=== PATIENT | female | born 1965 | race Caucasian/White ===

== ENCOUNTER 2020-08-17 10:11 | Day surgery (SDC) | payer OTHER, SELFPAY ==
[2020-08-17 10:46] VITALS: BMI 26.0
--- NOTE | 2020-08-17 11:03 | ANES.PREANE2 ---
Pre-Anesthetic Assessment Pre-Anesthetic Assessment: Height/Weight: Height 1.55 m Weight 62.596 kg Proposed Procedure: Operation Date: 08/24/20 09:50 Proposed Procedures p Hysteroscopy w/ Myosure w/ poss Polypectomy 38671 N95.0(Not Applicable) - Carlos Baca MD s Dilation And Curettage (D&C) w/ Myosure 35257(Not Applicable) - Carlos Baca MD Social: Social History: Tobacco (1994 quit) and No alcohol Exam: Pre-Anes Outpt Exam: alert, oriented x 3, clear to auscultation bilaterally and regular rate & rhythm Airway: Submandibular: WNL Cervical ROM: WNL MP: 1 Dentition: Partials (upper and lower) Additional comments: teeth ok History/ROS: No significant history except as noted Pulmonary: Pulmonary: None reported CV/HEM: CV/HEM: Arrythmia (PSVT controlled ) : : None reported Hepatic: Hepatic: None reported GI: GI: None reported Metabolic: Metabolic: Hyperlipidemia Musc/skel: Musc/skel: None reported Neuropsych: Neuropsych: None reported Anesthetic Plan: ASA status: 2 Anesthesia: Anesthesia Evaluation, General and MAC Risk of > 500 ml blood loss (7ml/kg in children): No PFSH Anesthesia PFSH: Medical History (Updated 08/16/20 @ 19:22 by Carlos Baca MD) Atypical chest pain Dyslipidemia Spider varicose vein Ventricular arrhythmia Surgical History (Updated 08/16/20 @ 19:22 by Carlos Baca MD) History of dental surgery (~2019) Family History (Updated 08/16/20 @ 19:23 by Carlos Baca MD) Mother Stroke Hypertension Grandfather Diabetes Maternal Father No problems noted. Social History (Updated 08/16/20 @ 19:26 by Carlos Baca MD) Smoking and tobacco status: former smoker Quit status (tobacco): has quit using tobacco Year quit tobacco: ~1996 Former quit date comment: Most smoked 1 PPD. Started age 17. Smoked for 15 years. Alcohol intake: current Alcohol intake frequency: holidays/special occasions only Data Anesthesia Cardiac Studies: No Data to Display
[2020-08-24] VITALS (7 sets, daily range): BP systolic 97–130; BP diastolic 57–75; PULSE 50–61; RESP 10–19; TEMP 36.2–36.8; O2SAT 96–100
[2020-08-24] MEDS: sodium chloride 0.9% 1,000 ML 30 ML IV (09:17)
[2020-08-24] MEDS: ketorolac 30 mg/mL INJ IVP (09:27)
--- NOTE | 2020-08-24 09:29 | P.ANESUD_ITS ---
Pre-Anesthetic Update Pre-Anesthetic Assessment: Date of Surgery/Procedure: 08/24/20 Preop Kala gnosis: Postmenopausal bleeding Proposed Procedure: Operation Date: 08/24/20 09:50 Proposed Procedures p Hysteroscopy w/ Myosure w/ poss Polypectomy 33996 N95.0(Not Applicable) - Cralos Baca MD s Dilation And Curettage (D&C) w/ Myosure 69711(Not Applicable) - Carlos Baca MD Any changes to Pre-Anesthetic Assessment?: No Last Intake: Intake Last Liquid Date 08/12/20 Last Liquid Time 19:00 Last Solid Date 08/23/20 Last Solid Time 19:00 Vitals: Temperature 98.2 F 08/24/20 09:17 Pulse Rate 59 L 08/24/20 09:17 Respiratory Rate 18 08/24/20 09:17 Blood Pressure 130/73 08/24/20 09:17 Blood Pressure Alisha n 92 08/24/20 09:17 Pulse Oximetry 97 08/24/20 09:17 Oxygen Delivery Me thod 08/24/20 09:17 Exam: Pre-Anes Outpt Exam: alert, oriented x 3, clear to auscultation bilaterally and regular rate & rhythm Cardiac Studies: No Data to Display
--- NOTE | 2020-08-24 09:31 | P.HPUD_ITS ---
Surgery/Procedure H&P Update DATE OF PROCEDURE: August 24, 2020 DATE H&P PERFORMED: 08/12/20 H&P UPDATE INFORMATION: I have reviewed H&P completed within last 30 days, I have examined patient prior to procedure, No changes to prior documentation and H&P is in [facility] EMR on date indicated PREOP DIAGNOSIS: Postmenopausal bleeding PLANNED PROCEDURE: Operation Date: 08/24/20 09:50 Proposed Procedures p Hysteroscopy w/ Myosure w/ poss Polypectomy 95451 N95.0(Not Applicable) - Carlos Baca MD s Dilation And Curettage (D&C) w/ Myosure 43465(Not Applicable) - Carlos Baca MD
--- NOTE | 2020-08-24 09:31 | W.PM.OPSUD ---
Surgery/Procedure H&P Update DATE OF PROCEDURE: August 24, 2020 DATE H&P PERFORMED: 08/12/20 H&P UPDATE INFORMATION: I have reviewed H&P completed within last 30 days, I have examined patient prior to procedure, No changes to prior documentation and [place] [facility] [place] on date indicated PREOP DIAGNOSIS: Postmenopausal bleeding PLANNED PROCEDURE: Operation Date: 08/24/20 09:50 Proposed Procedures p Hysteroscopy w/ Myosure w/ poss Polypectomy 37649 N95.0(Not Applicable) - Carlos Baca MD s Dilation And Curettage (D&C) w/ Myosure 03616(Not Applicable) - Carlos Baca MD
[2020-08-24] MEDS: midazolam 1 mg/mL INJ 2 mL 2 MG IVP (09:44)
--- NOTE | 2020-08-24 10:28 | PM.OP ---
Operative Report Date of procedure: August 24, 2020 Pre-op Diagnosis: Postmenopausal bleeding Post-op Findings: Postmenopausal bleeding, endometrial polyp and fibroid Procedure Done: Hysteroscopy with polypectomy and myomectomy with MyoSure, Paracervical block with 2% lidocaine with epinephrine Specimens removed/disposition: Endometrial polyp and fibroid with endometrial lining Surgeon: Carlos Baca Cyber [employer] Systems Specialist: None Anesthesia: General and Other (Paracervical block with 2% lidocaine with epinephrine) Estimated blood loss (mL): 2 IV fluids (mL): 700 Complications: None Findings: First to second-degree uterine prolapse. Fundal fibroid with greater than 90% of the fibroid within the endometrial cavity. Off of the end of the fibroid was a polyp. Brief History: Patient is a 55-year-old female 2, para 2 with an LMP in 2011 (postmenopausal). She presented to the office on 08/12/2020 with complaint of postmenopausal bleeding. She reported that in June she had approximately 2 weeks of bleeding that was heavy enough to need to wear a pad. She denied bleeding since that time. As result of the bleeding, she had an ultrasound performed which showed a mass within the endometrial cavity. On review of the ultrasound, it was suspicious for either a fibroid or polyp with it all appearing to be within the endometrial cavity. Recommended at the time proceeding to a hysteroscopy with removal of the polyp if it was a polyp. Questions were answered and she wishes to go ahead and proceed with this. Procedure: The patient was taken to the operating room where general anesthesia was obtained. She was prepped and draped in the usual sterile fashion in the dorsal supine position with legs in Bong style stirrups. Sequential compression boots had been placed prior to starting the case. Patient had voided just before coming to the operating room. Exam under anesthesia was performed and the patient was noted to have first to second-degree uterine prolapse. A weighted speculum was placed in the vagina and the cervix was grasped with a single-tooth tenaculum. A paracervical block was performed with a total of 12 mL of 2% lidocaine with epinephrine used. The cervix was serially dilated until a operative hysteroscope could be passed. Crystalloid solution was used as a distention media. The endometrial cavity was inspected. In the right fundal portion of the uterus was a solid mass consistent with fibroid with almost the entire mass being within the endometrial cavity. Off of the end of the mass was a polyp. No other abnormalities were noted within the endometrial cavity. Both tubal ostia were identified. Using the MyoSure device, the polyp and fibroid was removed. The lining of the uterus was also sampled using the device. There was minimal bleeding from the endometrial cavity at completion. The tenaculum was removed and there was minimal bleeding from the tenaculum site. Patient tolerated the procedure well. Sponge and needle counts were correct. There was a 280 mL fluid deficit at completion of the case from the distention media used. DRAINS: None POSTOPERATIVE STATUS: The patient was transferred to the recovery room in satisfactory condition DISPOSITION: Discharge to home when criteria was met. FOLLOWUP APPOINTMENT: Followup appointment had been scheduled on 09/09/2020 in my office. MEDICATIONS: Tramadol 50 mg, 1 to 2 tablets every 6 hours as needed for pain, #10, 0 refills May use [id number] ibuprofen as needed for pain. May resume normal home medications.
--- NOTE | 2020-08-24 10:42 | SUR.PHASEI ---
1042- ORAL AIRWAY OUT, SIMPLE MASK AT 6LPM SAT 100%
--- NOTE | 2020-08-24 11:06 | ANE.PACU2 ---
Inpatient post-anesthesia follow up: Airway intact: Yes Vital signs: Temperature 97.1 F Pulse Rate 61 Respiratory Rate 18 Blood Pressure 106/75 Pulse Oximetry 99 Oxygen Delivery Me thod Room Air Oxygen Flow Rate 6 Fraction of Inspir ed Oxygen Hydration adequate: Yes Nausea and vomiting: No Pain level: 2 Mental status: Baseline
== END 2020-08-24 11:35 | disposition home or self-care (01) ==
PROVIDERS: PCP Nurse Practitioner Family; Visit Provider Obstetrics & Gynecology
PROC: 0UDB8ZZ Extraction of Endometrium, Via Natural or Artificial Opening Endoscopic (ICD-10-PCS; CPT 58558; principal; 2020-08-24 09:50)
PROC: (CPT 58120; 2020-08-24 09:50)
DX: N95.0 Postmenopausal bleeding (principal); N84.0 Polyp of corpus uteri; D25.9 Leiomyoma of uterus, unspecified; Z87.891 Personal history of nicotine dependence; E78.5 Hyperlipidemia, unspecified
CPT/HCPCS: 58558; 12345; 88305; 96374; 96375; J1100; J1885; J2250; J2405; J2550; J2704; J2710; J3010; J3490; J7030

== ENCOUNTER → 2020-08-18 07:42 | Outpatient (BNVA) | payer OTHER, SELFPAY | PROVIDERS: PCP Nurse Practitioner Family; Visit Provider Obstetrics & Gynecology | DX: Z20.828 Contact with and (suspected) exposure to other viral communicable diseases (principal); N95.0 Postmenopausal bleeding | CPT/HCPCS: 87635 ==

== ENCOUNTER → 2021-05-30 10:44 | Outpatient (BNVA) | payer OTHER, SELFPAY | PROVIDERS: PCP Nurse Practitioner Family; Visit Provider Internal Medicine Cardiovascular Disease | DX: E78.5 Hyperlipidemia, unspecified (principal) | CPT/HCPCS: 80061 ==

== ENCOUNTER → 2021-11-22 15:34 | Outpatient (BNVA) | payer BC, SELFPAY | PROVIDERS: PCP Nurse Practitioner Family; Visit Provider Internal Medicine Cardiovascular Disease | DX: I49.9 Cardiac arrhythmia, unspecified (principal); R07.89 Other chest pain; R00.1 Bradycardia, unspecified | CPT/HCPCS: 93270 ==

== ENCOUNTER 2021-12-04 13:34 | Emergency (ER) | payer BC, MEDICAID, SELFPAY ==
[2021-12-04 13:39] VITALS: BP 160/82; PULSE 73; RESP 16; TEMP 37.1; O2SAT 99; BMI 26.0
--- NOTE | 2021-12-04 13:51 | ECG_ITS ---
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 Measurements Intervals [place] Rate: 65 P: 47 FL: 157 QRS: 88 QRSD: 96 T: 63 QT: 399 QTc: 416 Interpretive Statements SINUS RHYTHM INCOMPLETE RIGHT BUNDLE BRANCH BLOCK [90+ ms QRS DURATION, TERMINAL R IN V1/V2, 40+ ms S IN I/aVL/V4/V5/V6] No previous ECG available for comparison Electronically Signed On 12-04-2021 22:01:11 CDT by Radha Hawkins M.D. [id number]
--- NOTE | 2021-12-04 13:51 | XRR_ITS ---
PROCEDURE INFORMATION: Exam: XR Chest Exam date and time: 12/04/2021 1:58 PM Age: 56 years old Clinical indication: Sternal or substernal pain. Patient complains of intermittent chest pain this morning. Event monitor in place. TECHNIQUE: Imaging protocol: XR of the chest. Views: 1 view. COMPARISON: ES surgery / GI images 08/24/2020 10:01 AM FINDINGS: Tubes, catheters and devices: A loop recorder overlies the chest. Lungs: No pulmonary consolidation. Pleural spaces: No pleural effusion. No pneumothorax. Heart/Mediastinum: The heart appears enlarged. No gross evidence of pneumomediastinum. Bones/joints: No gross fracture. XR/XR chest 1V portable [id number] IMPRESSION: The heart appears enlarged.
--- NOTE | 2021-12-04 13:52 | W.ED.CHESTPA ---
HPI - Chest Pain General: Chief Complaint: Chest Pain Stated Complaint: Chest Pain, upper back pain Time Seen by Provider: 12/04/21 13:44 History of Present Illness: 56-year-old presents chest pain. States this started this morning. Describes it as achy and radiating to the left shoulder. Denies any radiation to the back between the shoulder blades. Denies shortness of breath or lower extremity pain or swelling. Denies fever cough or chills. 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 Review of Systems Narrative: - CONSTITUTIONAL: Denies weight loss, fever and chills. - HEENT: Denies changes in vision and hearing. - RESPIRATORY: Denies SOB and cough. - CV: As above - GI: Denies abdominal pain, nausea, vomiting and diarrhea. - : Denies dysuria and urinary frequency. - MSK: Denies myalgia and joint pain. - SKIN: Denies rash and pruritus. - NEUROLOGICAL: Denies headache, weakness, numbness and syncope. - PSYCHIATRIC: Denies suicidal ideation [facility] PFSH: Medical History Atypical chest pain Dyslipidemia Spider varicose vein Uterine fibroid Identified and removed at time of hysteroscopy in 07/2020 Ventricular arrhythmia Surgical History History of dental surgery (~2019) History of hysteroscopy (08/24/20) With D&C and polypectomy. Performed by Dr. Baca at [facility] in [place], [place] Family History Mother Stroke Hypertension Grandfather Diabetes Maternal Father No problems noted. Denies family history of CAD (coronary artery disease) Clotting disorder Chronic kidney disease (CKD) Suicide Anesthesia complication Bleeding disorder Lung disease Cancer Social History Smoking and tobacco status: former smoker Quit status (tobacco): has quit using tobacco Year quit tobacco: ~1996 Former quit date comment: Most smoked 1 PPD. Started age 17. Smoked for 15 years. Alcohol intake: current Alcohol intake frequency: holidays/special occasions only Physical Exam Narrative: EXAM NARRATIVE: - GENERAL: Alert and oriented x 3. No acute distress. Well-nourished. - EYES: EOMI. Anicteric. - HENT: Atraumatic, no C-spine tenderness. Moist mucous membranes. No scleral icterus. No cervical lymphadenopathy. - LUNGS: Clear to auscultation bilaterally. No accessory muscle use. Equal lung sounds bilaterally. No respiratory distress. - CARDIOVASCULAR: Regular rate and rhythm. No murmur. No JVD. - ABDOMEN: Soft, non-tender and non-distended. Negative CVA tenderness bilaterally, no rebound or guarding, negative Morales sign. No palpable masses. - EXTREMITIES: No edema. Non-tender. - SKIN: No rashes or lesions. Warm. - NEUROLOGIC: No meningismus or focal neurological deficits. CN II-XII grossly intact. - PSYCHIATRIC: Cooperative. Appropriate mood and affect. Course Vital Signs: Vital signs: Vital Signs Temperature 98.7 F 12/04/21 13:39 Pulse Rate 70 12/04/21 14:13 Respiratory Rate 14 12/04/21 14:13 Blood Pressure 134/79 12/04/21 14:13 Pulse Oximetry 100 12/04/21 14:13 MDM - Chest Pain Medical Decision Making 56-year-old presents with chest pain. Physical exam markable. Interrogation of her external monitor does not reveal any recorded events. D-dimer is elevated but CTA does not reveal signs of PE. EKG and troponins not revealing sign of acute ischemia or other acute abnormality. Discussed with on-call rehabilitation consultant, Dr. Hawkins, who recommends scheduling stress test for tomorrow. Case management consulted for this. However this time does not recommend admission. At this time I believe patient would be safe for discharge and outpatient follow-up. Return precautions provided. Plan was reviewed with the patient who expressed understanding. Questions answered. Patient will follow up with PCP. Patient discharged in stable condition. Lab Data : 12/04/21 14:09 12/04/21 14:09 Radiology Impressions Chest X-Ray 12/04/21 13:51 IMPRESSION: The heart appears enlarged. Chest CTA 12/04/21 15:20 IMPRESSION: 1. No evidence for aortic aneurysm or aortic dissection. 2. No evidence for pulmonary embolism. 3. No acute cardiopulmonary process. 4. Incidental/nonacute findings are listed in the report. Laboratory Results WBC 7.3 10^3/uL (4.0-10.0) 12/04/21 14:09 RBC 4.58 10^6/uL (4.1-5.3) 12/04/21 14:09 Hgb 13.8 g/dL (11.5-15.3) 12/04/21 14:09 Hct 41.1 % (37.0-47.0) 12/04/21 14:09 MCV 89.7 fl (81-99) 12/04/21 14:09 MCH 30.1 pg (28.0-34.0) 12/04/21 14:09 MCHC 33.6 g/dL (30.0-36.0) 12/04/21 14:09 RDW 10.9 % (12.1-15.1) L 12/04/21 14:09 Plt Count 206 10^3/cmm (130-400) 12/04/21 14:09 MPV 10.4 fL (7.4-10.4) 12/04/21 14:09 Neut % (Auto) 82.4 % 12/04/21 14:09 Lymph % (Auto) 12.0 % 12/04/21 14:09 [place] % (Auto) 4.5 % 12/04/21 14:09 Eos % (Auto) 0.4 % 12/04/21 14:09 Baso % (Auto) 0.3 % 12/04/21 14:09 Neut # (Auto) 5.98 10^3/uL (1.8-7.7) 12/04/21 14:09 Lymph # (Auto) 0.9 10^3/uL (0.8-4.8) 12/04/21 14:09 [place] # (Auto) 0.3 10^3/uL (0.2-0.9) 12/04/21 14:09 Eos # (Auto) 0.0 10^3/uL (0.0-0.8) 12/04/21 14:09 Baso # (Auto) 0.0 10^3/uL (0.0-0.1) 12/04/21 14:09 Nucleated RBC % (auto) 0 % 12/04/21 14:09 Nucleated RBCs # 0.0 /100WBC 12/04/21 14:09 D-Dimer 0.80 ug/mIFEU (0-0.59) H 12/04/21 14:35 Sodium 140 mmol/L (136-145) 12/04/21 14:09 Potassium 3.7 mmol/L (3.5-5.1) 12/04/21 14:09 Chloride 104 mmol/L (98-107) 12/04/21 14:09 Carbon Dioxide 23 mmol/L (22-29) 12/04/21 14:09 Anion Gap 16.7 (5-19) 12/04/21 14:09 BUN 10 mg/dL (6-20) 12/04/21 14:09 Creatinine 0.7 mg/dL (0.5-0.9) 12/04/21 14:09 GFR Calculation 86.6 mL/min (90-130) L 12/04/21 14:09 Glucose 125 mg/dL (65-115) H 12/04/21 14:09 Calculated Osmolality 291 mOsm/kg (285-295) 12/04/21 14:09 Calcium 9.6 mg/dL (8.5-10.5) 12/04/21 14:09 Total Bilirubin 0.2 mg/dL (0.15-1.2) 12/04/21 14:09 AST 25 U/L (0-32) 12/04/21 14:09 ALT 24 U/L (0-33) 12/04/21 14:09 Alkaline Phosphatase 109 IU/L (35-105) H 12/04/21 14:09 Troponin T Baseline 6 ng/L (0-10) 12/04/21 14:09 Troponin T 120 Minute 6.64 ng/L (0-10) 12/04/21 16:18 Delta Troponin T 0.64 ABS# (0-10) 12/04/21 16:18 NT-Pro-B Natriuret Pep 114 pg/mL (0-125) 12/04/21 14:09 Total Protein 6.6 g/dL (6.6-8.7) 12/04/21 14:09 Albumin 4.4 g/dL (3.5-5.2) 12/04/21 14:09 Globulin 2.2 g/dL (1.3-4.6) 12/04/21 14:09 EKG Data EKG 1: Other EKG comments: Incomplete right bundle branch block, no sign of acute ischemia or other acute abnormality. Discharge Plan Discharge Patient Disposition: Home Clinical Impression: Chest pain Condition: Stable Prescriptions: No Action Prempro 0.625-2.5 mg tablet 1 tab PO DAILY 0RF aspirin [Adult Low Dose Aspirin] 81 mg tablet,delayed release (DR/EC) 81 mg PO DAILY Qty: 90 3RF magnesium L-lactate 84 mg tablet extended release 84 mg PO DAILY Qty: 90 3RF metoprolol succinate 25 mg tablet extended release 24 hr 25 mg PO DAILY Qty: 90 3RF Rx Instructions: Must be seen for future refills simvastatin 10 mg tablet 10 mg PO DAILY Qty: 90 3RF Vitamin C 500 mg Tablet 500 mg PO DAILY 0RF zinc 50 mg Tablet 50 mg PO DAILY 0RF Vitamin D3 25 mcg (1,000 unit) Tablet 25 mcg PO DAILY 0RF Quercetin 1 tab PO DAILY 0RF Discharge Orders: Discharge ED (Routine); Ordered 12/04/21 Ordered By: Rony Petersen Referrals: Yaneth Acuña FNP [Primary Care Provider] - Radha Hawkins MD [Physician] - 1-3 days Patient Instructions: Chest Pain (ED), Opioid Safety Coding Level of Care Code ED Logistics Manager for Susan Durant
[2021-12-04 14:13] VITALS: BP 134/79; PULSE 70; RESP 14; O2SAT 100
[2021-12-04] MEDS: aspirin 81 mg Chew Tablet 324 MG PO (14:13)
[2021-12-04 14:19] LABS: Basophils % 0.3 %; Eosinophils % 0.4 %; Hematocrit 41.1 % (37.0-47.0); Hemoglobin 13.8 g/dL (11.5-15.3); Lymphocytes # 0.9 10^3/uL (0.8-4.8); Mean Corpuscular HGB Conc 33.6 g/dL (30.0-36.0); Mean Corpuscular Hemoglobin 30.1 pg (28.0-34.0); Mean Corpuscular Volume 89.7 fl (81-99); Mean Platelet Volume 10.4 fL (7.4-10.4); Monocytes # 0.3 10^3/uL (0.2-0.9); Monocytes % 4.5 %; Neutrophils # 5.98 10^3/uL (1.8-7.7); Neutrophils % 82.4 %; Nucleated Red Blood Cells % 0 %; Platelet Count 206 10^3/cmm (130-400); Red Blood Count 4.58 10^6/uL (4.1-5.3); Red Cell Distribution Width 10.9 % (12.1-15.1); White Blood Count 7.3 10^3/uL (4.0-10.0)
[2021-12-04 14:48] LABS: Troponin(5th) Baseline 6 ng/L (0-10)
[2021-12-04 14:57] LABS: Alanine Aminotransferase 24 U/L (0-33); Albumin Level 4.4 g/dL (3.5-5.2); Alkaline Phosphatase 109 IU/L (35-105); Anion Gap 16.7 (5-19); Aspartate Amino Transferase 25 U/L (0-32); Blood Urea Nitrogen 10 mg/dL (6-20); Calcium 9.6 mg/dL (8.5-10.5); Carbon Dioxide 23 mmol/L (22-29); Chloride 104 mmol/L (98-107); Globulin 2.2 g/dL (1.3-4.6); Glomerular Filtration Rate 86.6 mL/min (90-130); Glucose 125 mg/dL (65-115); NT Pro B Type Natriuretic Pept 114 pg/mL (0-125); Osmolality Calculated 291 mOsm/kg (285-295); Potassium 3.7 mmol/L (3.5-5.1); Sodium 140 mmol/L (136-145); Total Bilirubin 0.2 mg/dL (0.15-1.2); Total Protein 6.6 g/dL (6.6-8.7)
--- NOTE | 2021-12-04 15:07 | PC.NURSE ---
PATIENT CARROT BUNCHER PHONE NUMBER: [phone] PATIENT CARROT BUNCHER MODEL #: [id number]
--- NOTE | 2021-12-04 15:20 | CTR_ITS ---
PROCEDURE INFORMATION: Exam: CTA Chest With Contrast Exam date and time: 12/04/2021 3:51 PM Age: 56 years old Clinical indication: Other: Chest and back pain; Additional info: Pe TECHNIQUE: Imaging protocol: Computed tomographic angiography of the chest with contrast. Sagittal and coronal reformatted images were created and reviewed. 3D rendering (Not supervised by radiologist): MIP and/or 3D reconstructed images were created by the technologist. Radiation optimization: All CT scans at this facility use at least one of these dose optimization techniques: automated exposure control; mA and/or kV adjustment per patient size (includes targeted exams where dose is matched to clinical indication); or iterative reconstruction. Contrast material: OMNI 350; Contrast volume: 61 ml; Contrast route: INTRAVENOUS (IV); COMPARISON: CR XR chest 1V portable [id number] 12/04/2021 1:58 PM RADIATION DOSE METRICS: Total DLP (mGy-cm): 468 FINDINGS: Pulmonary arteries: No filling defects in the pulmonary arteries to suggest pulmonary embolism. Aorta: No evidence for aortic aneurysm or aortic dissection. Trachea: Tracheobronchial structures are patent. Lungs: Lungs are clear bilaterally. No pulmonary parenchymal nodules or masses. Pleural spaces: No pneumothorax. No pleural effusion. Heart: Stable mild enlargement of the heart. Mild atherosclerotic calcification in the coronary arteries. Esophagus: The esophagus is unremarkable. Mediastinal space: No mediastinal hematoma. No pneumomediastinum. Lymph nodes: No lymphadenopathy. Liver: The visualized liver is unremarkable. Gallbladder and bile ducts: The visualized gallbladder is unremarkable. No dilatation of the visualized bile ducts. Pancreas: The visualized pancreas is unremarkable. No pancreatic ductal dilatation. Spleen: The visualized spleen is unremarkable. Adrenal glands: The visualized right and left adrenal glands are unremarkable. Kidneys and ureters: The visualized left kidney is unremarkable. Bones/joints: Adiy-bh-vbobweil multilevel degenerative changes in the visualized spine. Soft tissues: The extrathoracic soft tissues are unremarkable. CT/CT angio chest PE protcl [id number] IMPRESSION: 1. No evidence for aortic aneurysm or aortic dissection. 2. No evidence for pulmonary embolism. 3. No acute cardiopulmonary process. 4. Incidental/nonacute findings are listed in the report.
[2021-12-04] MEDS: iohexol 350 mg/mL 100 mL Btl IV (15:52)
[2021-12-04 16:46] LABS: Troponin 5 2HR 6.64 ng/L (0-10)
[2021-12-04 17:25] LABS: Troponin 5 2HR Delta 0.64 ABS# (0-10)
[2021-12-04 18:43] VITALS: PULSE 67; RESP 20; O2SAT 97
--- NOTE | 2021-12-05 15:26 | DCPLANNER ---
Addendum entered by Bess Dobbs 12/29/21 19:21: Patient had a follow up appointment scheduled with [facility] -patient did attend appointment. mobile manager was notified that patients insurance denied patients stress test. mobile manager attempted to contact patient, but was unable to speak with patient at this time. Addendum entered by Bess Dobbs 12/06/21 12:42: Patient has a follow up appointment scheduled for Thursday, December 09, 2021 at 11:15 with [facility], Paula Messer. mobile manager called patient to give patient the appointment information. mobile manager was unable to speak with patient at this time, a voicemail was left for patient with the appointment information. Original Note: mobile manager had message to schedule an outpatient stress test for patient. mobile manager called patient to confirm that patient wanted the stress test ordered and to confirm who patient sees for primary care physician. Patient stated that she did want the test ordered and that she sees Yaneth Acuña at [facility] and Dr. Hawkins at [facility]. mobile manager sent patients information to the front office staff at [facility] for review. Patients information will be printed and reviewed. Clinic will notify piano case maker of appointment, piano case maker will call patient with appointment information. mobile manager faxed signed order to centralized scheduling, who will call patient with appointment information.
== END 2021-12-04 18:44 | disposition home or self-care (01) ==
PROVIDERS: Emergency Provider Emergency Medicine; PCP Nurse Practitioner Family
DX: R07.9 Chest pain, unspecified (principal); I45.10 Unspecified right bundle-branch block; E78.5 Hyperlipidemia, unspecified; Z79.82 Long term (current) use of aspirin; Z87.891 Personal history of nicotine dependence
CPT/HCPCS: 36415; 71045; 71275; 80053; 83880; 84484; 85025; 85378; 93005; 99283; Q9967

== ENCOUNTER → 2021-12-08 13:54 | Outpatient (BNVA) | payer BC, MEDICAID, SELFPAY | PROVIDERS: PCP Nurse Practitioner Family; Visit Provider Nurse Practitioner Family | DX: R07.9 Chest pain, unspecified (principal); Z09 Encounter for follow-up examination after completed treatment for conditions other than malignant neoplasm; I49.9 Cardiac arrhythmia, unspecified; Z87.891 Personal history of nicotine dependence; Z79.82 Long term (current) use of aspirin | CPT/HCPCS: 99214 ==

== ENCOUNTER 2021-12-23 11:19 | Outpatient (CLI) | payer BC, MEDICAID, SELFPAY ==
--- NOTE | 2021-12-23 12:00 | USCV_ITS ---
Dalia Nguyen Age: 56 Gender: F : 1965 Exam Date: 12/23/2021 11:48 Ordering Phys: Paula Messer Technologist: Star Holguin Exam Location: [facility] [place] Indication: tach chest pain BP: 123 / 67 HR: 53 Rhythm: Sinus Technical Quality: Adequate MEASUREMENTS (Male / Female) Normal Values 2D ECHO LV Diastolic Diameter PLAX 4.7 cm 4.2 - 5.9 / 3.9 - 5.3 cm LV Systolic Diameter PLAX 2.5 cm IVS Diastolic Thickness 1.0 cm 0.6 - 1.0 / 0.6 - 0.9 cm IVS Systolic Thickness 1.2 cm LVPW Diastolic Thickness 0.8 cm 0.6 - 1.0 / 0.6 - 0.9 cm LVPW Systolic Thickness 1.3 cm LVOT Diameter 2.1 cm LV Ejection Fraction 2D Teich 79.7 % LV Ejection Fraction MOD 2C 75.0 % LV Ejection Fraction 2C AL 74.7 % LA Diameter 3.1 cm Aorta at Sinotubular Diameter 2.2 cm M-MODE LV Diastolic Diameter MM 4.6 cm 4.2 - 5.9 / 3.9 - 5.3 cm LV Systolic Diameter MM 2.6 cm LV Ejection Fraction MM Teich 75.2 % IVS Diastolic Thickness MM 0.9 cm 0.6 - 1.0 / 0.6 - 0.9 cm IVS Systolic Thickness MM 1.4 cm LVPW Diastolic Thickness MM 0.9 cm 0.6 - 1.0 / 0.6 - 0.9 cm LVPW Systolic Thickness MM 1.6 cm RV Diastolic Diameter MM 1.8 cm Aortic Annulus Diameter 2.7 cm LA Ao Ratio MM 1.1 MV E Point Septal Separation 0.6 cm DOPPLER AV Peak Velocity 146.0 cm/s LVOT Peak Velocity 88.0 cm/s AV Area Cont Eq vti 2.1 cm squared AV Area Cont Eq pk 2.0 cm squared MV Area PHT 5.0 cm squared Mitral E to A Ratio 1.3 MV E' Velocity 59.5 cm/s Mitral E to MV E' Ratio 7.2 Mitral E to LV E' Lateral Ratio 8.0 Mitral E to LV E' Septal Ratio 6.5 TR Peak Velocity 186.7 cm/s TR Peak Gradient 13.9 mmHg TV Peak E Velocity 79.0 cm/s Right Atrial Pressure 3.0 mmHg Pulmonary Artery Systolic Pressu 16.9 mmHg PV Peak Velocity 103.0 cm/s FINDINGS Left Ventricle Normal left ventricular size, systolic function and wall thickness, with no regional wall motion abnormalities. Normal diastolic function. Left ventricular ejection fraction is estimated at 65 %. Right Ventricle Normal right ventricular size and systolic function. Normal right ventricular systolic pressure. Right Atrium The right atrium is normal in size. Left Atrium The left atrium is normal in size. Mitral Valve Thickened mitral valve. Mild prolapse of the anterior mitral valve leaflet. Mild prolapse of the posterior mitral valve leaflet. Trace mitral valve regurgitation. Aortic Valve Structurally normal aortic valve without significant sclerosis or stenosis. There is no aortic regurgitation. Tricuspid Valve Structurally normal tricuspid valve. Trace tricuspid valve regurgitation. Pulmonic Valve Pulmonic valve not well visualized. Pericardium Normal pericardium without effusion. Aorta Normal ascending aorta dimension. CONCLUSIONS Normal left ventricular size, systolic function and wall thickness, with no regional wall motion abnormalities. Normal diastolic function. Left ventricular ejection fraction is estimated at 65 %. Thickened mitral valve. Mild prolapse of the anterior mitral valve leaflet. Mild prolapse of the posterior mitral valve leaflet. Trace mitral valve regurgitation. Dr. Robert Saleem MD (Electronically Signed) Final Date: 23 December 2021 14:43 S
== END 2021-12-23 11:20 | disposition home or self-care (01) ==
LOC: RAD 11:20
PROVIDERS: PCP Nurse Practitioner Family; Visit Provider Internal Medicine Cardiovascular Disease
DX: I34.1 Nonrheumatic mitral (valve) prolapse (principal); I34.0 Nonrheumatic mitral (valve) insufficiency
CPT/HCPCS: 93306

== ENCOUNTER 2022-01-10 07:02 | Outpatient (CLI) | payer BC, MEDICAID, SELFPAY ==
[2022-01-10 07:09] VITALS: BMI 25.3
--- NOTE | 2022-01-10 07:10 | NMCV_ITS ---
NM marilou perf SPECT r/s* [id number] Dalia Nguyen Age: 56 Gender: F : 1965 Exam Date: 01/10/2022 08:54 Ordering Phys: Radha Hawkins MD ([email or web address]) Technologist: IVON Berg Exam Location: [facility] Indications: CHEST PAIN STRESS TEST Please see separate stress test report in [facility] for full findings IMAGE PROTOCOL Rest/Stress 1 Radiopharmaceutical Dose (mCi) Administration Site Administered by Rest: Tc-99m 10.7 IV IVON Dudley Sestamibi Stress:Tc-99m 32.6 IV IVON Dudley Sestamibi Rest: 10-Jan-2022 60 Discovery 630 Stress: 10-Jan-2022 30 Discovery 630 Radiopharmaceutical was injected at 93 % maximum heart rate. Images obtained in supine and prone position. SPECT RESULTS Technical Quality: Excellent Raw Data Analysis: Normal Image Corrections: No attenuation or motion correction applied Summed Stress Score: 0 Summed Rest Score: 0 Summed Difference Score: 0 PERFUSION FINDINGS Fairly uniform myocardial tracer uptake with no significant perfusion abnormalities FUNCTIONAL RESULTS (calculated via Gated SPECT) Stress Image LV EF (%): 74 Stress EDV (mL):62 TID: 0.93 Stress ESV (mL):16 FUNCTIONAL FINDINGS: Segmental wall motion analysis revealing no gross wall motion normalities IMPRESSIONS 1. Unremarkable myocardial perfusion imaging. 2. Normal LV ejection fraction of 74%. 3. LV wall motion analysis revealing no gross wall motion abnormalities. 4. Normal LV volume. Low probability for coronary ischemia, based on the above findings Dr Radha Hawkins MD FACC (Electronically Signed) Final Date: 10 Jan 2022 15:19 S
--- NOTE | 2022-01-10 07:10 | ECG_ITS ---
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 Interpretive Statements NAME OF STUDY: EXERCISE SESTAMIBI STRESS TEST INDICATION: Chest Pain PROCEDURE: The baseline electrocardiogram showed sinus bradycardia with rate of 51 bpm. Q waves in the anterior leads suggestive of old anteroseptal myocardial infarction. At the baseline, the patient's blood pressure was 128/63 mm Hg with a heart rate of 68. The patient exercised for 10 minutes and 1 second on a standard Vlad protocol. Patient attained a maximum heart rate of 169 beats per minute(103% of the maximum predicted heart rate) with a blood pressure at the peak exercise of 146/69 mm Hg. The EKG at the peak exercise revealed no significant changes. Patient did not have any chest pain or any significant arrhythmis with the exercise Sestamibi was injected 1 minute prior to the peak exercise During the recovery phase, there were no new changes. Blood pressure at the end of the recovery phase was 114/71 mm Hg with a heart rate of 75 per minute. CONCLUSION: 1. No significant EKG changes with the [treadmill exercise 2. No exercise-induced chest pain or cardiac arrhythmia 3. Good exercise tolerance, attained a maximum of 13.5 METs 4. Sestamibi/Sestamibi perfusion results pending; see separate report. Electronically Signed On 01-13-2022 12:23:52 CDT by Radha Hawkins M.D. [id number]
[2022-01-10 10:03] VITALS: BP 114/73; PULSE 71
== END 2022-01-10 07:03 | disposition home or self-care (01) ==
LOC: CDL 07:04
PROVIDERS: PCP Nurse Practitioner Family; Visit Provider Internal Medicine Cardiovascular Disease
DX: R07.9 Chest pain, unspecified (principal)
CPT/HCPCS: 78452; 93017; A9500

== ENCOUNTER → 2022-02-08 10:27 | Outpatient (BNVA) | payer BC, MEDICAID, SELFPAY | PROVIDERS: PCP Nurse Practitioner Family; Visit Provider Internal Medicine Cardiovascular Disease | DX: R07.89 Other chest pain (principal); E78.5 Hyperlipidemia, unspecified; I49.9 Cardiac arrhythmia, unspecified; Z87.891 Personal history of nicotine dependence | CPT/HCPCS: 99213; 99214 ==

== ENCOUNTER 2022-05-26 09:04 | Outpatient (CLI) | payer BC, MEDICAID, SELFPAY ==
--- NOTE | 2022-05-26 09:24 | MM_ITS ---
WS: [id number] VIEWS: MLO, CC, and ML views both breasts. 3D digital tomosynthesis is also included in this exam. C ompression spot views with tomography also obtained of the right axilla. Comparison made with prior exam of 08/05/2014, 02/09/2016, 05/16/2017, 09/18/2018, 12/15/2019,. Findings: There was no sign of mass, architectural distortion or suspicious calcification in either breast. Chapin ign-appearing lymph nodes seen in the upper outer quadrant of the right breast.Scattered fibroglandul ar densities MM/[place] [id number] Impression: BI-RADS: 2-Benign FOLLOW-UP: 1 Year Follow-up This mammogram was also analyzed by the Computer Aided Detection System R2 Imag e Wire [employer].
--- NOTE | 2022-05-26 09:24 | US_ITS ---
WS: [id number] Exam: US soft tissue/extremity [id number] Date/Time of Exam: 05/26/2022 10:16 AM Reason For Exam: PAIN IN RT UNDERARM The right axilla is targeted for ultrasound evaluation. The clinically reported palpable nodule in th e right axilla appears to represent a small lymph node. This measures 1.08 cm at greatest length and approximately 0.72 cm at short axis dimension. There was no suspicious mass or nodule seen in the rig ht axilla with ultrasound. No cysts were identified. Recommendations: Continue yearly screening mammography. US/US soft tissue/extremity [id number] IMPRESSION: 1. 1.08 x 0.72 cm ovoid nodule in the right axilla having the appearance of a b enign lymph node. 2. No suspicious solid mass or nodule is noted in this region. BI-RADS Category 2. Benign.
== END 2022-05-26 09:05 | disposition home or self-care (01) ==
PROVIDERS: PCP Nurse Practitioner Family; Visit Provider Nurse Practitioner Family
DX: M79.621 Pain in right upper arm (principal)
CPT/HCPCS: 76882; 77062

== ENCOUNTER 2023-06-30 09:49 | Emergency (ER) | payer BC, MEDICAID, SELFPAY ==
[2023-06-30 09:55] VITALS: BP 140/89; PULSE 61; RESP 14; O2SAT 97
--- NOTE | 2023-06-30 10:00 | CTR_ITS ---
PROCEDURE INFORMATION: Exam: CT Head Without Contrast Exam date and time: 06/30/2023 10:17 AM Age: 58 years old Clinical indication: Numbness / parasthesia; Left; Additional info: Left-sided numbness TECHNIQUE: Imaging protocol: Computed tomography of the head without contrast. Radiation optimization: All CT scans at this facility use at least one of these dose optimization techniques: automated exposure control; mA and/or kV adjustment per patient size (includes targeted exams where dose is matched to clinical indication); or iterative reconstruction. REPORTING DATA: Count of CT and Cardiac NM exams in prior 12 months: This patient has received 0 known CTs and 0 known cardiac nuclear medicine studies in the 12 months prior to the current study. COMPARISON: CR XR cervical spine 3V* [id number] 03/06/2023 8:59 AM RADIATION DOSE METRICS: Total DLP (mGy-cm): 1026.28 FINDINGS: Brain: Normal. No hemorrhage. Unremarkable white matter. No mass effect. Cerebral ventricles: No ventriculomegaly. Paranasal sinuses: Partial opacification of the partially visualized left maxillary sinus. Mastoid air cells: Visualized mastoid air cells are well aerated. Bones/joints: Unremarkable. No acute fracture. Soft tissues: Unremarkable. CT/CT head wo con* [id number] IMPRESSION: No acute intracranial findings.
--- NOTE | 2023-06-30 10:05 | ED_ITS ---
HPI - Neuro Symptoms/Deficit General: Chief Complaint: Neuro Symptoms/Deficit Stated Complaint: left side body numb Time Seen by Provider: 06/30/23 09:50 Source: patient Mode of arrival: ambulatory History of Present Illness: 58-year-old female who presents to the emergency room with complaints of left- sided numbness. She also has some ringing in her ear and mild ear discomfort. She denies any drainage from the ear. She notes the numbness more so on her arm than her leg. Also feels it on the left side of her face. She denies any difficulty vision speech swallowing no ataxia no gait difficulty. On initial valuation with sharp touch in the left versus the right side she can discern a slight difference on the face but it is very minor almost indiscernible and no discernible difference in right to left on the arms. Her stroke score is essentially 0. There is no ataxia. She denies chest or abdominal pain no fever sweats or chills. Her last known well was around 1130 last night she woke up with symptoms this morning she is not on any anticoagulants. Quality: tingling Relieving factors: none Exacerbating factors: none Associated symptoms: Deny chest pain, cough, diaphoresis, fevers/chills, headache(s), anorexia, malaise, nausea, seizures, short of breath, syncope, tingling, vertigo, vomiting or weakness Treatments Prior to Arrival: Aspirin Review of Systems Const: Denies: fever(s), chills, malaise or diaphoresis Card: Denies: chest pain or syncope Resp: Denies: dyspnea GI: Denies: abdominal pain, nausea or vomiting : Denies: dysuria, urinary frequency or urinary urgency Musc: Denies: neck pain or back pain Skin/Breast: Denies: rash Neuro: Denies: headache(s) or vertigo PFS ED PFSH: Medical History Atypical chest pain Dyslipidemia Spider varicose vein Uterine fibroid Identified and removed at time of hysteroscopy in 07/2020 Ventricular arrhythmia Surgical History History of dental surgery (~2019) History of hysteroscopy (08/24/20) With D&C and polypectomy. Performed by Dr. Baca at [facility] in [place], [place] Family History Mother Stroke Hypertension Grandfather Diabetes Maternal Father No problems noted. Denies family history of CAD (coronary artery disease) Clotting disorder Chronic kidney disease (CKD) Suicide Anesthesia complication Bleeding disorder Lung disease Cancer Social History Smoking and tobacco/nicotine status: former use of tobacco/nicotine Quit status (tobacco/nicotine): has quit using Year quit tobacco: ~1996 Former quit date comment: Most smoked 1 PPD. Started age 17. Smoked for 15 years. Alcohol intake: current Alcohol intake frequency: holidays/special occasions only Substance/Drug Use: never NIH stroke score NIHSS: Level Of Consciousness - 1a: 0 Level Of Consciousness Questions - 1b: Both Correct Level Of Consciousness Commands - 1c: Both Correct Best Gaze - 2: Normal Visual Carr - 3: No Visual Loss Facial Palsy - 4: Normal Motor Arm Right - 5: No Drift Motor Arm Left - 5: No Drift Motor Leg Right - 6: No Drift Motor Leg Left - 6: No Drift Limb Ataxia - 7: Absent Sensory - 8: Normal Best Language - 9: No Aphasia Dysarthia - 10: Normal Extinction And Inattention - 11: 0 Score: Total Score: 0 Physical Exam Const: COMMON NORMALS: no acute distress GENERAL APPEARANCE: cooperative and comfortable ORIENTATION/CONSCIOUSNESS: Yes awake, Yes oriented to person, Yes oriented to place and Yes oriented to time HENMT: COMMON NORMALS: normocephalic, atraumatic and hearing grossly normal bilaterally HEAD & SCALP: normocephalic and atraumatic Resp: COMMON NORMALS: normal respiratory effort, No retractions, No use of accessory muscles and clear to auscultation bilaterally AUSCULTATION: clear to auscultation bilaterally Cardio: COMMON NORMALS: regular rate, regular rhythm and No murmurs present (Cardio) RATE: regular rate RHYTHM: regular rhythm GI: COMMON NORMALS: Soft to palpation and No hepatosplenomegaly present AUSCULTATION: Yes normoactive bowel sounds PALPATION: Yes Soft to palpation, No Tenderness to palpation present (GI), No Guarding due to palpation present (GI) and Yes No hepatosplenomegaly present Extremity: COMMON NORMALS: normal to inspection, capillary refill normal, no clubbing, cyanosis or edema, no calf tenderness and no pedal edema Neuro: SENSORIUM/ORIENTATION: Yes oriented to person, Yes oriented to place and Yes oriented to time Skin: COMMON NORMALS: no rashes or lesions noted GENERAL SKIN EXAM: no rashes or lesions noted Course Vital Signs: Vital signs: Vital Signs Pulse Rate 58 L 06/30/23 10:34 Respiratory Rate 14 06/30/23 10:34 Blood Pressure 140/86 06/30/23 10:34 Pulse Oximetry 96 06/30/23 10:34 Oxygen Delivery Me thod Room Air 06/30/23 10:34 MDM - Neuro Symptoms/Deficit Medical Decision Making Stroke score is 0. She has no demonstrable focal deficits. She describes some numbness but with scratch testing on her face she is equal bilaterally. Some of her symptoms are vaguely suggestive of early Sepulveda's palsy but she has no definitive findings of that at this time. We will discharge her home on atorvastatin and full-strength aspirin and have her follow-up with neurology. Set her up for echo MRI head with and without and carotid duplex as well as a 48-hour Holter . Return if has further problems. Medical Records I reviewed the patient's medical records. Lab Data I reviewed the patient's lab results. 06/30/23 10:32 06/30/23 10:[address] 06/30/23 10:00 IMPRESSION: No acute intracranial findings. Laboratory Results WBC 4.37 10^3/uL (3.29-11.43) 06/30/23 10:32 RBC 4.80 10^6/uL (3.85-5.65) 06/30/23 10:32 Hgb 14.30 g/dL (11.27-16.99) 06/30/23 10:32 Hct 43.7 % (36-47) 06/30/23 10:32 MCV 91.0 fl (85-98) 06/30/23 10:32 MCH 29.8 pg (27-33) 06/30/23 10:32 MCHC 32.7 g/dL (30-55) 06/30/23 10:32 RDW 11.3 % (12.1-15.1) L 06/30/23 10:32 Plt Count 208 10^3/cmm (157-399) 06/30/23 10:32 MPV 9.9 fL (7.4-10.4) 06/30/23 10:32 Neut % (Auto) 54.5 % 06/30/23 10:32 Lymph % (Auto) 35.2 % 06/30/23 10:32 Moore % (Auto) 7.8 % 06/30/23 10:32 Eos % (Auto) 1.8 % 06/30/23 10:32 Baso % (Auto) 0.5 % 06/30/23 10:32 Neut # (Auto) 2.38 10^3/uL (1.8-7.7) 06/30/23 10:32 Lymph # (Auto) 1.5 10^3/uL (0.8-4.8) 06/30/23 10:32 Moore # (Auto) 0.3 10^3/uL (0.2-0.9) 06/30/23 10:32 Eos # (Auto) 0.1 10^3/uL (0.0-0.8) 06/30/23 10:32 Baso # (Auto) 0.0 10^3/uL (0.0-0.1) 06/30/23 10:32 Nucleated RBC % (auto) 0 % 06/30/23 10:32 Nucleated RBCs # 0.0 /100WBC 06/30/23 10:32 Sodium 141 mmol/L (136-145) 06/30/23 10:32 Potassium 4.4 mmol/L (3.5-5.1) 06/30/23 10:32 Chloride 104 mmol/L (98-107) 06/30/23 10:32 Carbon Dioxide 28 mmol/L (22-29) 06/30/23 10:32 Anion Gap 13.4 (5-19) 06/30/23 10:32 BUN 17 mg/dL (6-20) 06/30/23 10:32 Creatinine 0.5 mg/dL (0.5-0.9) 06/30/23 10:32 GFR Calculation 126.7 mL/min (90-130) 06/30/23 10:32 Glucose 99 mg/dL (65-115) 06/30/23 10:32 Calculated Osmolality 294 mOsm/kg (285-295) 06/30/23 10:32 Calcium 9.8 mg/dL (8.5-10.5) 06/30/23 10:32 Total Bilirubin 0.4 mg/dL (0.15-1.2) 06/30/23 10:32 AST 25 U/L (0-32) 06/30/23 10:32 ALT 30 U/L (0-33) 06/30/23 10:32 Alkaline Phosphatase 105 U/L (35-105) 06/30/23 10:32 Total Protein 7.0 g/dL (6.6-8.7) 06/30/23 10:32 Albumin 4.7 g/dL (3.5-5.2) 06/30/23 10:32 Globulin 2.3 g/dL (1.3-4.6) 06/30/23 10:32 All radiology interpretation(s) finalized by discharge Discharge Plan Discharge Patient Disposition: Home Clinical Impression: Numbness and tingling of left side of face, Left sided numbness Condition: Stable Prescriptions: New aspirin 325 mg capsule 325 mg PO DAILY Qty: 30 0RF atorvastatin 40 mg tablet 40 mg PO DAILY Qty: 30 0RF No Action aspirin [Adult Low Dose Aspirin] 81 mg tablet,delayed release (DR/EC) 81 mg PO DAILY Qty: 90 3RF magnesium L-lactate 84 mg tablet extended release 84 mg PO DAILY Qty: 90 3RF zinc acetate 50 mg (zinc) Capsule 50 mg PO DAILY Licorice Root 450 mg Capsule 450 mg PO DAILY Bromelain Powder 1 ea MISCELLANEOUS DAILY metoprolol succinate 25 mg tablet extended release 24 hr 25 mg PO QPM ascorbic acid (vitamin C) [Vitamin C] 500 mg Tablet 500 mg PO DAILY cholecalciferol (vitamin D3) [Vitamin D3] 25 mcg (1,000 unit) Tablet 25 mcg PO DAILY Quercetin 1 tab PO DAILY Discharge Orders: Discharge ED (Routine); Ordered 06/30/23 Ordered By: Manolo Perez Referrals: Yaneth Acuña FNP [Primary Care Provider] - Discharge Diet: Usual diet Discharge Activity: Increase activity as tolerated Patient Instructions: Opioid Safety, Pain Management Activity Restrictions/Additional Instructions: Thank you for choosing [facility] for your healthcare needs today. Please realize this is an emergency room and that we are providing you with a medical screening exam and this may not be complete and all inclusive of all the testing and or work up that you may need to determine your ailment or severity of your illness. It is very important that you follow up as instructed or that you return to the Emergency Department should you have concerns or if your condition changes or worsens in any way. CT of your head was negative. Your history and symptoms are suggestive of a potential Sepulveda's palsy. Stroke examination is not suggestive of significant event. Discussed your case with the on-call neurologist he agrees and recommends at this point starting atorvastatin and increasing to a full size aspirin daily. Will set up outpatient testing including an MRI of the head, echocardiogram, carotid duplex, and 48-hour Holter. Coding Level of Care Code ED Multimedia Specialist for Susan Durant
--- NOTE | 2023-06-30 10:23 | ECG_ITS ---
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 Measurements Intervals [place] Rate: 52 P: 51 AK: 178 QRS: 85 QRSD: 98 T: 68 QT: 420 QTc: 391 Interpretive Statements SINUS BRADYCARDIA WITH SINUS ARRHYTHMIA INCOMPLETE RIGHT BUNDLE BRANCH BLOCK [90+ ms QRS DURATION, TERMINAL R IN V1/V2, 40+ ms S IN I/aVL/V4/V5/V6] Compared to ECG 12/04/2021 13:53:12 Sinus rhythm no longer present Electronically Signed On 06-30-2023 13:10:07 CDT by Shelbi Winslow M.D. [email or web address] Math Hoopssinging river gulfportSmadexfort [email or web address]/store/[id number]
[2023-06-30 10:24] VITALS: BP 140/89; PULSE 70; RESP 18; O2SAT 94
[2023-06-30 10:34] VITALS: BP 140/86; PULSE 58; RESP 14; O2SAT 96
[2023-06-30 10:42] LABS: Basophils % 0.5 %; Eosinophils # 0.1 10^3/uL (0.0-0.8); Eosinophils % 1.8 %; Hematocrit 43.7 % (36-47); Lymphocytes # 1.5 10^3/uL (0.8-4.8); Lymphocytes % 35.2 %; Mean Corpuscular HGB Conc 32.7 g/dL (30-55); Mean Corpuscular Hemoglobin 29.8 pg (27-33); Mean Platelet Volume 9.9 fL (7.4-10.4); Monocytes # 0.3 10^3/uL (0.2-0.9); Monocytes % 7.8 %; Neutrophils # 2.38 10^3/uL (1.8-7.7); Neutrophils % 54.5 %; Nucleated Red Blood Cells % 0 %; Platelet Count 208 10^3/cmm (157-399); Red Cell Distribution Width 11.3 % (12.1-15.1); White Blood Count 4.37 10^3/uL (3.29-11.43)
[2023-06-30 10:55] LABS: Alanine Aminotransferase 30 U/L (0-33); Albumin Level 4.7 g/dL (3.5-5.2); Alkaline Phosphatase 105 U/L (35-105); Anion Gap 13.4 (5-19); Aspartate Amino Transferase 25 U/L (0-32); Blood Urea Nitrogen 17 mg/dL (6-20); Calcium 9.8 mg/dL (8.5-10.5); Carbon Dioxide 28 mmol/L (22-29); Chloride 104 mmol/L (98-107); Globulin 2.3 g/dL (1.3-4.6); Glomerular Filtration Rate 126.7 mL/min (90-130); Glucose 99 mg/dL (65-115); Osmolality Calculated 294 mOsm/kg (285-295); Potassium 4.4 mmol/L (3.5-5.1); Sodium 141 mmol/L (136-145); Total Bilirubin 0.4 mg/dL (0.15-1.2)
--- NOTE | 2023-07-02 09:52 | DCPLANNER ---
Referral was sent to neuro on 07/02/23 at 0953. Clinic to contact patient
--- NOTE | 2023-07-02 09:53 | DCPLANNER ---
Message was sent to heart care to get scheduled for a 48 hr holter monitor. Sent message on 07/02/23 [phone]
== END 2023-06-30 12:09 | disposition home or self-care (01) ==
PROVIDERS: Emergency Provider Family Medicine; PCP Nurse Practitioner Family
DX: R20.0 Anesthesia of skin (principal); Z79.82 Long term (current) use of aspirin; Z87.891 Personal history of nicotine dependence; E78.5 Hyperlipidemia, unspecified
CPT/HCPCS: 70450; 80053; 85025; 93005; 99285

== ENCOUNTER → 2023-07-12 08:00 | Outpatient (BNVA) | payer BC, MEDICAID, SELFPAY | PROVIDERS: PCP Nurse Practitioner Family; Visit Provider Physician Assistant | DX: M47.22 Other spondylosis with radiculopathy, cervical region (principal); M40.202 Unspecified kyphosis, cervical region | CPT/HCPCS: 72050; 72072 ==

== ENCOUNTER 2023-07-16 11:57 | Outpatient (CLI) | payer BC, MEDICAID, SELFPAY ==
--- NOTE | 2023-07-16 12:02 | USCV_ITS ---
Dalia Nguyen Age: 58 Gender: F : 1965 Exam Date: 07/16/2023 12:39 Ordering Phys: Manolo Perez DO Technologist: CT [place]am [place] [facility] [place] Indication: syncope Risk Factors: Previous Vascular Surgery: Right Brachial BP: / Left Brachial BP: / Right Left Velocity (cm/s) Spectral Plaque Velocity (cm/s) Spectral Plaque Syst/Diast Broadening Syst/Diast Broadening 82.00/ 20.20 Prox CCA 100.60/ 23.40 21.30/ 88.10 Mid CCA 94.60 / 23.70 84.30/ 21.10 Distal CCA 75.90 / 26.00 62.30/ 20.30 Prox ICA 79.20 / 31.00 60.50/ 22.30 Mid ICA 83.00 / 33.20 55.70/ 24.60 Distal ICA 87.90 / 34.00 92.70 ECA 107.00 0.74 ICA/CCA 0.87 Antegrade Vertebral Antegrade 45.80/ 16.00 cm/s 48.10/ 18.20 cm/s Tri Subclavian Tri 95.90 153.8 0 FINDINGS Comparison: none available. No significant elevation of systolic or diastolic velocities. Waveforms are normal. No significant amount of calcified plaque or intimal thickening identified. CONCLUSIONS Normal carotid doppler ultrasound. Dr. Ximena Finley DO (Electronically Signed) Final Date: 16 July 2023 15:12 S
--- NOTE | 2023-07-16 12:02 | USCV_ITS ---
Dalia Nguyen Age: 58 Gender: F : 1965 Exam Date: 07/16/2023 12:12 Ordering Phys: Manolo Perez DO Technologist: CT Exam Location: [facility] [place] Indication: syncope BP: 115 / 75 HR: 61 Rhythm: Sinus Technical Quality: Adequate MEASUREMENTS (Male / Female) Normal Values 2D ECHO LVOT Diameter 2.1 cm LV Ejection Fraction MOD 2C 64.8 % LV Ejection Fraction 2C AL 64.0 % LA Diameter 3.1 cm Aorta at Sinotubular Diameter 2.6 cm IVC Diameter 1.6 cm M-MODE Aortic Annulus Diameter 3.3 cm LA Ao Ratio MM 1.0 MV E Point Septal Separation 0.7 cm DOPPLER AV Peak Velocity 155.0 cm/s LVOT Peak Velocity 99.0 cm/s AV Area Cont Eq vti 2.4 cm squared AV Area Cont Eq pk 2.2 cm squared MV E' Velocity 14.0 cm/s TR Peak Velocity 215.7 cm/s TR Peak Gradient 18.6 mmHg TV Peak E Velocity 88.0 cm/s Right Atrial Pressure 3.0 mmHg Pulmonary Artery Systolic Pressu 21.6 mmHg PV Peak Velocity 108.0 cm/s FINDINGS Left Ventricle Normal left ventricular size, systolic function and wall thickness, with no regional wall motion abnormalities. Left ventricular ejection fraction is estimated at 64%. Normal diastolic function. Right Ventricle Normal right ventricular size and systolic function. Right Atrium Normal right atrial size. Left Atrium Normal left atrial size. Mitral Valve Structurally normal mitral valve. No mitral regurgitation. Aortic Valve Structurally normal trileaflet aortic valve. No aortic valve stenosis. No aortic valve regurgitation. Tricuspid Valve Structurally normal tricuspid valve. Pulmonic Valve Structurally normal pulmonic valve. Pericardium No pericardial effusion. Aorta Normal size aortic root and proximal ascending aorta. IVC Normal IVC dimension with >50% respiratory change of the inferior vena cava. CONCLUSIONS 1. Normal left ventricular function. LVEF normal 64%. 2. Normal chamber sizes. 3. No significant valvular abnormality noted. 4. Normal right heart and pulmonary pressures. Anson Vora MD (Electronically Signed) Final Date: 16 July 2023 17:33 S
== END 2023-07-16 11:58 | disposition home or self-care (01) ==
LOC: RAD 11:57
PROVIDERS: PCP Nurse Practitioner Family; Visit Provider Family Medicine
DX: I69.354 Hemiplegia and hemiparesis following cerebral infarction affecting left non-dominant side (principal); R55 Syncope and collapse
CPT/HCPCS: 93306; 93880

== ENCOUNTER 2023-07-17 15:07 | Outpatient (CLI) | payer BC, MEDICAID, SELFPAY ==
--- NOTE | 2023-07-17 15:13 | MR_ITS ---
WS: [id number] MRI HEAD WITH CONTRAST TECHNIQUE: Sagittal T1, T2 axial, T2 axial FLAIR, axial susceptibility weighted imaging, axial diffus ion weighted images, and coronal T2 images were obtained. Pre and post-T1 axial and post T1 coronal i mages. ADC and FSPGR images. CLINICAL INFORMATION: HEMIPARESIS/HEMIPLEGIA COMPARISON: CT 06/30/23 FINDINGS: No evidence of restricted diffusion to suggest acute ischemia. Ventricular system and basal cisterns are patent. Normal posterior fossa. Normal vascular flow voids at the skull base. No extra-axial flui d collections. LEFT maxillary sinusitis with inspissated secretions. Normal posterior nasopharynx. Ma stoid air cells are well aerated. Few patchy foci of T2 hyperintensity in the posterior periventricular white matter are nonspecific in a patient this age but can be seen with hypertension, diabetes, small vessel disease, and demyelinat ing disease. No hemosiderin on the susceptibly weighted images. Normal optic chiasm and pituitary inf undibulum. Temporal lobes and hippocampal formations are normal in appearance. No abnormal gadolinium enhancement. Normal optic chiasm and pituitary infundibulum. No other suspicio us findings. IMPRESSION: 1. No evidence of restricted diffusion to suggest acute ischemia. 2. A few small foci of T2 hyperintensity in the posterior periventricular white matter are nonspecif ic in a patient this age but can be seen with hypertension, diabetes, small vessel disease, and less likely demyelinating disease. 3. No significant parenchymal volume loss. 4. No abnormal gadolinium enhancement. 5. LEFT maxillary sinusitis. 6. No hemosiderin on susceptibility-weighted images.
[2023-07-17] MEDS: gadobenate dimeglumine 20 mL vial IV (15:57)
== END 2023-07-17 15:08 | disposition home or self-care (01) ==
LOC: RAD 15:07
PROVIDERS: PCP Nurse Practitioner Family; Visit Provider Family Medicine
DX: I69.354 Hemiplegia and hemiparesis following cerebral infarction affecting left non-dominant side (principal)
CPT/HCPCS: 70553; A9577

== ENCOUNTER 2023-08-01 10:53 | Outpatient (CLI) | payer BC, MEDICAID, SELFPAY ==
--- NOTE | 2023-08-01 11:00 | MR_ITS ---
WS: [id number] MRI CERVICAL SPINE NONCONTRAST TECHNIQUE: Sagittal T1, T2 and STIR imaging. Axial T2, gradient, and fiesta imaging. CLINICAL INFORMATION: cervical pain COMPARISON: None. FINDINGS: Straightening of the normal cervical lordosis. No high-grade central canal narrowing. Cord signal is normal. No focal lesions or demyelinating lesions in the cervical cord. C2-C3: Moderate LEFT facet arthropathy. Mild LEFT bony foraminal narrowing. Spinal canal is patent. L obulated T2 hyperintense lesion at this level may represent subchondral degenerative changes or a sma ll hemangioma. Small amount of edema in the abutting LEFT C3 facet. LEFT facet synovitis. C3-C4: Shallow central protrusion with slight indentation of the cervical cord. Mild facet arthropath y. Mild LEFT and no significant RIGHT foraminal narrowing. C4-C5: Shallow central protrusion. Mild facet arthropathy. Mild LEFT and no significant RIGHT foramin al narrowing. Spinal canal is patent. C5-C6: Shallow LEFT paracentral protrusion with slight indentation on the cervical cord. Mild facet a rthropathy. Mild LEFT and no significant RIGHT foraminal narrowing. C6-C7: Shallow disc bulging. Mild to moderate LEFT and no significant RIGHT foraminal narrowing. Spin al canal is patent. C7-T1: Shallow central protrusion. Disc osteophytic ridging. Moderate LEFT and mild RIGHT foraminal n arrowing. T1-T2: Mild LEFT and no significant RIGHT bony foraminal narrowing. Visualized brain stem structures: Normal. Prevertebral soft tissues: Normal. IMPRESSION: 1. Straightening of the normal cervical lordosis. Cord signal is normal. No lesions in the cervical cord. 2. Central disc protrusion with slight indentation of the cervical cord at C5-6. Spinal canal is pat ent. 3. Mild to moderate bony foraminal narrowing at LEFT C2-3, LEFT C3-4, LEFT C5-C6 and mild to moderat e LEFT C6-7. 4. Moderate LEFT C7-T1 and mild LEFT T1-T2 bony foraminal narrowing. 5. Facet synovitis LEFT C2-3 likely degenerative or inflammatory. Degenerative subchondral cystic ch padmini or hemangioma in the LEFT C2 facet and pedicle 6. Shallow central protrusions at C3-C4 and C4-C5 with slight indentation on the cervical cord.
== END 2023-08-01 10:54 | disposition home or self-care (01) ==
LOC: RAD 10:53
PROVIDERS: PCP Nurse Practitioner Family; Visit Provider Physician Assistant
DX: M47.22 Other spondylosis with radiculopathy, cervical region (principal); M50.21 Other cervical disc displacement, high cervical region; M48.03 Spinal stenosis, cervicothoracic region; M65.88 Other synovitis and tenosynovitis, other site
CPT/HCPCS: 72141

== ENCOUNTER → 2023-10-08 09:06 | Outpatient (BNVA) | payer BC, MEDICAID, SELFPAY | PROVIDERS: PCP Nurse Practitioner Family; Visit Provider Psychiatry & Neurology Neurology | DX: I99.8 Other disorder of circulatory system (principal); I63.511 Cerebral infarction due to unspecified occlusion or stenosis of right middle cerebral artery; Z79.899 Other long term (current) drug therapy | CPT/HCPCS: 36415; 81241; 82525; 83090; 84439; 84443; 84481; 85210; 86146; 86147 ==

== ENCOUNTER → 2024-02-21 10:41 | Outpatient (BNVA) | payer BC, MEDICAID, SELFPAY | PROVIDERS: PCP Nurse Practitioner Family; Visit Provider Internal Medicine Cardiovascular Disease | DX: R07.9 Chest pain, unspecified (principal); I45.10 Unspecified right bundle-branch block; R00.1 Bradycardia, unspecified; E78.5 Hyperlipidemia, unspecified; I34.1 Nonrheumatic mitral (valve) prolapse; I86.8 Varicose veins of other specified sites | CPT/HCPCS: 93005 ==

== ENCOUNTER 2024-10-09 12:38 | Outpatient (CLI) | payer BC, MEDICAID, SELFPAY ==
--- NOTE | 2024-10-09 | ECG_ITS ---
[facility] Test Date: 2024-10-09 Pat Name: Dalia Nguyen Department: Room: Gender: Female Senior Officer: : 1965 Requested By: Paula Messer Order Number: [id number] Burdick MD: Radha Hawkins M.D. Interpretive Statements Lung unchanged pre/post procedure; Intraprocedure shortess of breath; Symptoms resoled by discharge PROCEDURE: At the baseline, the patient's blood pressure was 108/69 with a heart rate of 71. The baseline electrocardiogram showed normal sinus rhythm with normal ST-Ts.. The patient exercised for 10 minutes and 20 seconds on a standard Vlad protocol. Patient attained a maximum heart rate of 164 beats per minute(101% of the maximum predicted heart rate) with a blood pressure at the peak exercise of 185/94 mm Hg. The EKG at the peak exercise revealed no significant changes. Patient did not have any chest pain or any significant cardiac arrhythmias with the exercise During the recovery phase, there were no new changes. Blood pressure at the end of the recovery phase was 114/66 mm Hg with a heart rate of 73 per minute. CONCLUSION: 1. Normal EKG response to treadmill exercise 2. No exercise-induced chest pain or cardiac arrhythmia 3. Good exercise tolerance, attained a maximum of 13.5 METs Electronically Signed On 10-13-2024 06:36:15 RAPID EXTRACTOR OPERATOR by Radha Hawkins M.D. [email or web address]
[2024-10-09 12:46] VITALS: BMI 24.5
[2024-10-09 13:15] VITALS: BP 114/66; PULSE 73
== END 2024-10-09 12:39 | disposition home or self-care (01) ==
LOC: CDL 12:39
PROVIDERS: PCP Nurse Practitioner Family; Visit Provider Nurse Practitioner Family
DX: R07.89 Other chest pain (principal)
CPT/HCPCS: 93017

== ENCOUNTER 2025-03-10 08:07 | Emergency (ER) | payer BC, MEDICAID, SELFPAY ==
--- NOTE | 2025-03-10 08:12 | ECG_ITS ---
[facility] Date: 2025-03[facility]10 Pat Name: Dalia Nguyen Department: Room: Gender: Female Crnp: : 1965 Requested By: Manolo Moffett Order Number: [id number] Gennaro MD: Radha Hawkins M.D. Measurements Intervals Currie Rate: 58 P: 54 TN: 181 QRS: 98 QRSD: 89 T: 80 QT: 379 QTc: 375 Interpretive Statements SINUS BRADYCARDIA BORDERLINE RIGHT AXIS DEVIATION [QRS AXIS > 90] POSSIBLE RIGHT VENTRICULAR CONDUCTION DELAY [RSR (QR) IN V1/V2] SEPTAL MYOCARDIAL INFARCTION , OF INDETERMINATE AGE [40+ ms Q WAVE IN V1/V2] Compared to ECG 02/21/2024 10:46:24 Myocardial infarct finding now present Sinus arrhythmia no longer present Incomplete right bundle-branch block no longer present Electronically Signed On 03-10-2025 09:45:23 CDT by Radha Hawkins M.D. [id number]
[2025-03-10 08:16] VITALS: BP 147/87; PULSE 64; RESP 18; TEMP 36.7; O2SAT 99; BMI 23.6
--- NOTE | 2025-03-10 08:16 | W.ED.CHESTPA ---
HPI - Chest Pain General: Chief Complaint: Chest Pain Stated Complaint: chest pain Time Seen by Provider: 03/10/25 08:16 History of Present Illness: 59-year-old female presents emergency room complaining of chest pain off-and-on says been going on for the last 2 weeks. Wakes her up from sleep at times she localizes it to her back. It is not reproducible with movement or palpation and she has noticed anything that exacerbates or relieves it. Is not accompanied by any pain radiating to the neck or arm no shortness of breath. Associated symptoms: Deny abdominal pain, dyspnea or fever(s) Related Data Home Medications ?Medication ?Instructions ?Recorded ?Confirmed Quercetin 1 tab PO DAILY 12/04/21 09/30/24 ascorbic acid (vitamin C) 500 mg 500 mg PO DAILY 12/04/21 09/30/24 tablet (Vitamin C) cholecalciferol (vitamin D3) 25 25 mcg PO DAILY 12/04/21 09/30/24 mcg (1,000 unit) tablet (Vitamin D3) bromelains (bulk) (Bromelain 1 ea miscellaneous DAILY 06/30/23 09/30/24 powder) licorice root (G.glabra) 450 mg 450 mg PO DAILY 06/30/23 09/30/24 capsule zinc acetate 50 mg (zinc) capsule 50 mg PO DAILY 06/30/23 09/30/24 cyclobenzaprine 10 mg tablet mg PO 03/12/24 09/30/24 ibuprofen 600 mg tablet mg PO 03/12/24 09/30/24 Previous Rx's ?Medication ?Instructions ?Recorded aspirin 81 mg tablet,delayed 81 mg PO DAILY #90 tabs 08/22/21 release (Adult Low Dose Aspirin) magnesium L-lactate 84 mg 84 mg PO DAILY #90 tabs 08/22/21 tablet,extended release metoprolol succinate 25 mg 25 mg PO QPM #90 tabs 02/21/24 tablet,extended release 24 hr Allergies Allergy/AdvReac Type Severity Reaction Status Date / Time terbinafine (From Lamisil) Allergy Unknown unknown Verified 09/30/24 09:40 Review of Systems Const: Denies: fever(s) or chills Card: Reports: chest pain Resp: Denies: dyspnea GI: Denies: abdominal pain : Denies: dysuria, urinary frequency or urinary urgency Musc: Denies: neck pain or back pain Skin/Breast: Denies: rash PFSH ED PFSH: Medical History Uterine fibroid Identified and removed at time of hysteroscopy in 07/2020 Spider varicose vein Atypical chest pain Dyslipidemia Ventricular arrhythmia Surgical History History of hysteroscopy (08/24/20) With D&C and polypectomy. Performed by Dr. Baca at [facility] in [place], [place] History of dental surgery (~2019) Family History Mother Stroke Hypertension Grandfather Diabetes Maternal Father No problems noted. Denies family history of CAD (coronary artery disease) Clotting disorder Chronic kidney disease (CKD) Suicide Anesthesia complication Bleeding disorder Lung disease Cancer Social History Smoking and tobacco/nicotine status: former use of tobacco/nicotine Quit status (tobacco/nicotine): has quit using Year quit tobacco: ~1996 Former quit date comment: Most smoked 1 PPD. Started age 17. Smoked for 15 years. Alcohol intake: current Alcohol intake frequency: holidays/special occasions only Substance/Drug Use: never Physical Exam Const: GENERAL APPEARANCE: cooperative ORIENTATION/CONSCIOUSNESS: Yes awake, Yes oriented to person, Yes oriented to place and Yes oriented to time HENMT: COMMON NORMALS: normocephalic, atraumatic and hearing grossly normal bilaterally HEAD & SCALP: normocephalic and atraumatic Resp: COMMON NORMALS: normal respiratory effort, No retractions, No use of accessory muscles and clear to auscultation bilaterally AUSCULTATION: clear to auscultation bilaterally Cardio: COMMON NORMALS: regular rate, regular rhythm and No murmurs present (Cardio) RATE: regular rate RHYTHM: regular rhythm GI: COMMON NORMALS: Soft to palpation and No hepatosplenomegaly present AUSCULTATION: Yes normoactive bowel sounds PALPATION: Yes Soft to palpation, No Tenderness to palpation present (GI), No Guarding due to palpation present (GI) and Yes No hepatosplenomegaly present Extremity: COMMON NORMALS: normal to inspection, capillary refill normal, no clubbing, cyanosis or edema, no calf tenderness and no pedal edema Neuro: SENSORIUM/ORIENTATION: Yes oriented to person, Yes oriented to place and Yes oriented to time Skin: COMMON NORMALS: no rashes or lesions noted GENERAL SKIN EXAM: no rashes or lesions noted Course Vital Signs: Vital signs: Vital Signs Temperature 98.1 F 03/10/25 08:16 Pulse Rate 58 L 03/10/25 11:14 Respiratory Rate 18 03/10/25 08:16 Blood Pressure 118/76 03/10/25 11:14 Pulse Oximetry 100 03/10/25 11:14 Oxygen Delivery Me thod Room Air 03/10/25 08:16 MDM - Chest Pain Medical Decision Making Cardiac enzymes undetectable at 1 and 2 hours should be pain for 2 weeks cardiac EKG does not show any acute changes will discharge patient home have her follow-up with primary care. Reviewed her chart she has had negative stress testing in September 2022 and prior to that in December 2021 echocardiogram done June 2023 was also negative. Suspect based on her characterization of the pain it is more musculoskeletal. No sign of pneumonia or pneumothorax no widening of the mediastinum. Patient's not been tachycardic or hypoxic no sign of PE at this time. Medical Records Echocardiogram 07/16/2023 CONCLUSIONS 1. Normal left ventricular function. LVEF normal 64%. 2. Normal chamber sizes. 3. No significant valvular abnormality noted. 4. Normal right heart and pulmonary pressures. Anson Vora MD (Electronically Signed) Final Date: 16 July 2023 Graded exercise test October 09, 2024 CONCLUSION: 1. Normal EKG response to treadmill exercise 2. No exercise-induced chest pain or cardiac arrhythmia 3. Good exercise tolerance, attained a maximum of 13.5 METs Electronically Signed On 10-13-2024 06:36:15 PHOTO MASK INSPECTOR by Radha Hawkins M.D. [email or web address] Dictated By: Radha Hawkins MD Lexiscan sestamibi stress test 01/10/2022 IMPRESSIONS 1. Unremarkable myocardial perfusion imaging. 2. Normal LV ejection fraction of 74%. 3. LV wall motion analysis revealing no gross wall motion abnormalities. 4. Normal LV volume. Low probability for coronary ischemia, based on the above findings Dr Radha Hawkins MD [facility] Lab Data I reviewed the patient's lab results. 03/10/25 08:30 03/10/25 08:30 Radiology Impressions Chest X-Ray 03/10/25 08:17 IMPRESSION: No acute findings. Thoracic Spine X-Ray 03/10/25 08:49 IMPRESSION: No acute osseous findings. Laboratory Results WBC 4.47 10^3/uL (3.29-11.43) 03/10/25 08:30 RBC 4.75 10^6/uL (3.85-5.65) 03/10/25 08:30 Hgb 14.00 g/dL (11.27-16.99) 03/10/25 08:30 Hct 42.6 % (36-47) 03/10/25 08:30 MCV 89.7 fl (85-98) 03/10/25 08:30 MCH 29.5 pg (27-33) 03/10/25 08:30 MCHC 32.9 g/dL (30-55) 03/10/25 08:30 RDW 11.6 % (12.1-15.1) L 03/10/25 08:30 Plt Count 183 10^3/cmm (157-399) 03/10/25 08:30 MPV 9.3 fL (7.4-10.4) 03/10/25 08:30 Neut % (Auto) 47.5 % 03/10/25 08:30 Lymph % (Auto) 34.2 % 03/10/25 08:30 Barnwell % (Auto) 6.7 % 03/10/25 08:30 Eos % (Auto) 11.0 % 03/10/25 08:30 Baso % (Auto) 0.4 % 03/10/25 08:30 Neut # (Auto) 2.12 10^3/uL (1.8-7.7) 03/10/25 08:30 Lymph # (Auto) 1.5 10^3/uL (0.8-4.8) 03/10/25 08:30 Barnwell # (Auto) 0.3 10^3/uL (0.2-0.9) 03/10/25 08:30 Eos # (Auto) 0.5 10^3/uL (0.0-0.8) 03/10/25 08:30 Baso # (Auto) 0.0 10^3/uL (0.0-0.1) 03/10/25 08:30 Nucleated RBC % (auto) 0 % 03/10/25 08:30 Nucleated RBCs # 0.0 /100WBC 03/10/25 08:30 Sodium 140 mmol/L (136-145) 03/10/25 08:30 Potassium 4.2 mmol/L (3.5-5.1) 03/10/25 08:30 Chloride 102 mmol/L (98-107) 03/10/25 08:30 Carbon Dioxide 27 mmol/L (22-29) 03/10/25 08:30 Anion Gap 15.2 (5-19) 03/10/25 08:30 BUN 12 mg/dL (6-20) 03/10/25 08:30 Creatinine 0.5 mg/dL (0.5-0.9) 03/10/25 08:30 GFR Calculation 126.3 mL/min (90-130) 03/10/25 08:30 Glucose 92 mg/dL (65-115) 03/10/25 08:30 Calculated Osmolality 289 mOsm/kg (285-295) 03/10/25 08:30 Calcium 9.4 mg/dL (8.5-10.5) 03/10/25 08:30 Total Bilirubin 0.5 mg/dL (0.15-1.2) 03/10/25 08:30 AST 27 U/L (0-32) 03/10/25 08:30 ALT 23 U/L (0-33) 03/10/25 08:30 Alkaline Phosphatase 118 U/L (35-105) H 03/10/25 08:30 Troponin T Baseline < 6 ng/L (0-10) 03/10/25 08:30 Troponin T 120 Minute < 6.0 ng/L (0-10) 03/10/25 10:17 Delta Troponin T 0 ABS# (0-10) 03/10/25 10:17 Total Protein 7.1 g/dL (6.6-8.7) 03/10/25 08:30 Albumin 4.4 g/dL (3.5-5.2) 03/10/25 08:30 Globulin 2.7 g/dL (1.3-4.6) 03/10/25 08:30 All radiology interpretation(s) finalized by discharge EKG Data EKG 1: Interpretation: EKG 03/10/2025 8:12 AM. Sinus bradycardia rate of 58 CO interval 181 QTc 377. Q waves noted in V1 and 2. No acute ST elevation or depression. Unchanged from EKG 02/21/2024 Discharge Plan Discharge Patient Disposition: Home Clinical Impression: Atypical chest pain Condition: Stable Prescriptions: No Action metoprolol succinate 25 mg tablet extended release 24 hr 25 mg PO QPM Qty: 90 3RF cyclobenzaprine 10 mg tablet PO ibuprofen 600 mg tablet PO aspirin [Adult Low Dose Aspirin] 81 mg tablet,delayed release (DR/EC) 81 mg PO DAILY Qty: 90 3RF magnesium L-lactate 84 mg tablet extended release 84 mg PO DAILY Qty: 90 3RF zinc acetate 50 mg (zinc) Capsule 50 mg PO DAILY Licorice Root 450 mg Capsule 450 mg PO DAILY Bromelain Powder 1 ea MISCELLANEOUS DAILY ascorbic acid (vitamin C) [Vitamin C] 500 mg Tablet 500 mg PO DAILY cholecalciferol (vitamin D3) [Vitamin D3] 25 mcg (1,000 unit) Tablet 25 mcg PO DAILY Quercetin 1 tab PO DAILY Discharge Orders: Discharge ED (Routine); Ordered 03/10/25 Ordered By: Manolo Perez Referrals: Yaneth Acuña FNP [Primary Care Provider, Unknown] Discharge Diet: Usual diet Discharge Activity: Resume usual activity Patient Instructions: Opioid Safety, Pain Management, Patient Portal & Maria Ines Instructions Activity Restrictions/Additional Instructions: Thank you for choosing [facility] for your healthcare needs today. It is very important that you follow up as instructed or that you return to the Emergency Department should you have concerns or if your condition changes or worsens in any way. You were seen in the emergency room with a complaint of upper back posterior chest pain. Your cardiac enzymes and EKG did not show any acute reviewing chart to previous stress test in the last 3 years have been normal and echocardiogram done recently was also normal. X-ray of your thoracic spine did not show any compression fractures. Your description of your symptoms sounds more musculoskeletal. Your chest x-ray was normal. Recommend that you follow-up with your primary care if symptoms persist Print Language: Palauan Coding Level of Care Code ED Transportation Manager for Chg Fwd
--- NOTE | 2025-03-10 08:17 | XRR_ITS ---
PROCEDURE INFORMATION: Exam: XR Chest Exam date and time: 03/10/2025 8:19 AM Age: 59 years old Clinical indication: Pain; Angina pectoris; Additional info: Chest pain TECHNIQUE: Imaging protocol: Radiologic exam of the chest. Views: 1 view. COMPARISON: CT angio chest PE protcl [id number] 12/04/2021 3:51 PM FINDINGS: Lungs: Unremarkable. No consolidation. Pleural spaces: Unremarkable. No pleural effusion. No pneumothorax. Heart/Mediastinum: Unremarkable. No cardiomegaly. Bones/joints: Unremarkable. XR/XR chest 1V portable [id number] IMPRESSION: No acute findings.
--- OUTSIDE RECORDS SUMMARY | 2025-03-10 08:26 | XMS_ITS | Clinical Summary ---
Author Organization 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
--- OUTSIDE RECORDS SUMMARY | 2025-03-10 08:26 | XMS_ITS | Data Portability ---
Author Organization NIKI [facility] Sarah Stanley [facility] Address [address] [place] [address] Care Team Providers Care Aluminum Polisher Name Role Phone YANETH IRIZARRY Primary Care Provider Unavailabl e Assessment Encounter Date Assessment Date Assessment LastModified by Organization Details LastModified Time 06/06/2024 06/06/2024 Patient was scheduled an appt with her PCP next week [email or web address] Not available 06/06/2024 12:53:10 06/10/2024 06/10/2024 Patient here today for a recheck on some symptoms she has been having. She has been having left facial, arm and thigh numbness for the past year off and on, new onset of headache over the past 2 weeks. She reports she has had firing in her brain for the past 11 months. She has had an MRI of her neck and head. She was seeing Dr. Holguin but didn't feel like he was listening to her concerns. Not available 06/10/2024 14:37:59 08/05/2024 08/05/2024 Patient here today for a 6 month follow-up and to discuss neurology visit. She is now wondering if her pain is being caused by a tooth. I advised her to discuss with a dental provider as he/she would have better capability to evaluate this area. She reports she has weaned herself off of the Prempro and is doing well. Not available 08/05/2024 10:13:34 02/03/2025 02/03/2025 Patient reports she had a test done in [place] to test for Sepulveda's Palsy and he mentioned something about rechecking the MRI but she cancelled because she didn't really feel like it is necessary. She has follow-up with Dr. Hawkins next month. Discussed pap testing but she declines at this time. Not available 02/03/2025 16:07:57 Plan of Treatment Reminders Order Date Submit Date Provider Last Modified By Organization Details Last Modified Time Details Appointments None recorded. Lab urinalysis, dipstick 2024 [email or web address] 47 [facility] ([facility]), [address] [place] [address], [address], 5 21:39:17 culture, urine 2024 [facility] [facility], [address] [place] [address], [address], [place], [address], 5 20:36:38 vitamin B12 + folate, serum or blood 2023 [facility] [facility], [address] [place] [address], [address], [place], [address], 4 07:43:27 C-reactive protein, quantitativ e, serum or plasma 2023 [facility] [facility], [address] [place] [address], [address], [place], [address], 4 07:43:26 iron + TIBC + ferritin, serum 2023 [facility] [facility], [address] [place] [address], [address], [place], [address], 4 07:43:23 magnesium, serum or plasma 2023 [employer] [facility], [address] [place] [address], [address], [place], [address], 4 07:43:25 vitamin D, 25-hydroxy, total, serum 2023 [facility] [facility], [address] [place] [address], [address], [place], [address], 07:43:28 CMP, serum or plasma 2023 PETROLIA [facility], [address], [place], [address], 16:28:02 CBC 2023 On license of [facility], [address], [address], [place], [address], 15:26:15 vitamin B1 (thiamine), blood 2023 PETROLIA [employer] [facility], [address] [place] [address] 248, [address], [place], [address], 07:43:29 Referral neurologist referral 2023 024 [email or web address] Not available 09:37:58 Procedures None recorded. Surgeries None recorded. Imaging None recorded. Medication Orders amoxicillin 875 mg-potassiu m clavulanate 125 mg tablet 2024 025 [facility], [address], [place], [address], 15:46:38 Patient TargetsNo targets recorded. Patient Instructions Encounter Date Encounter Id Patient Instructions Last Modified By Organization Details Last Modified Time 06/10/2024 [id number] Call or return for questions or concerns. Not available 06/10/2024 14:34:39 08/05/2024 [id number] Call or return for questions or concerns. Not available 08/05/2024 10:09:51 02/03/2025 [id number] Call or return for questions or concerns. Not available 02/03/2025 16:08:29 Reason for Referral Neurologist Referral for Maciel laurent Referring Physician: Yaneth Irizarry, Family Medicine, Encounter Date: 06/10/2024 Results Created Date Observation Date Name Description Value Unit Range Abnormal Flag Note LastModifiedBy Organization Detail LastModifiedTime 06/10/2006/10/2024 CBC WBC 5.5 x10 4.0-10 .5 Not Available [facility] [address] [facility], [place], [address], 06/10/2024 15:26:15 06/10/2006/10/2024 CBC RBC 4.88 x10 3.50-5 .50 Not Available [facility] [address] [facility], [place], [address], 06/10/2024 15:26:15 06/10/2006/10/2024 CBC HGB 14.6 g/dL 12.0-1 6.0 Not Available [facility] [address] [facility], [place], [address], 06/10/2024 15:26:15 06/10/2006/10/2024 CBC HCT 42.7 % 37.0-4 7.0 Not Available [facility] [address] [facility], [place], [address], 06/10/2024 15:26:15 06/10/2006/10/2024 CBC MCV 87.6 fL 80.0-9 9.9 Not Available [facility] [address] [facility], [place], [address], 06/10/2024 15:26:15 06/10/2006/10/2024 CBC MCH 30.0 pg 27.0-3 2.0 Not Available [facility] [address] [facility], [place], [address], 06/10/2024 15:26:15 10/15/20 24 06/10/2024 CBC MCHC 34.3 g/dL 32.0-3 6.0 Not Available [facility] [address] [facility], [place], [address], 06/10/2024 15:26:15 06/10/2006/10/2024 CBC RDW 12.9 % 11.5-1 4.5 Not Available [facility] [address] [facility] [address], [place], [address], 06/10/2024 15:26:15 06/10/2006/10/2024 CBC plt 186.2 x10 140.0- 451.0 Not Available [facility] [address] [facility] [address], [place], [address], 06/10/2024 15:26:15 06/10/2006/10/2024 CBC lymphocytes % 32.6 % 20.0-5 0.0 Not Available [facility] [address] [facility] [address], [place], [address], 06/10/2024 15:26:15 06/10/2006/10/2024 CBC granulcytes % 59.3 % 30.0-7 0.0 Not Available [facility] [address] [facility] [address], [place], [address], 06/10/2024 15:26:15 06/10/2006/10/2024 CBC monocytes % 6.4 % 2.0-16 .0 Not Available [facility] [address] [facility] [address], [place], [address], 06/10/2024 15:26:15 06/10/2006/10/2024 CBC granulcytes# 3.3 x10 Not Tori ilable [facility] [address] [facility] [address], [place], [address], 06/10/2024 15:26:15 06/10/20 24 06/10/2024 CBC lymphocytes # 1.8 x10 Not Available [facility] [address] [facility] [address], [place], [address], 06/10/2024 15:26:15 06/10/20 24 06/10/2024 CBC monocytes # 0.4 x10 Not Avai lable [facility] [address] [address], [place], [address], 06/10/2024 15:26:15 06/10/20 24 06/10/2024 CMP (FEMA LE) glucose 101.0 mg/dL 60.0-9 9.0 high Not Available [facility] [address] [address], [place], [address], 06/10/2024 16:28:02 06/10/20 24 06/10/2024 CMP (FEMA LE) BUN (blood urea nitrogen) 15.0 mg/dL 10.0-2 6.0 Not Available [facility] [address] [address], [place], [address], 06/10/2024 16:28:02 06/10/20 24 06/10/2024 CMP (FEMA LE) creatinine (serum) 0.6 mg/dL 0.4-1. 5 Not Available [facility] [address] [address], [place], [address], 06/10/2024 16:28:02 06/10/20 24 06/10/2024 CMP (FEMA LE) BUN/creatini ne ratio 25.86 ratio Not Available [facility] [address] [address], [place], [address], 06/10/2024 16:28:02 06/10/20 24 06/10/2024 CMP (FEMA LE) eGFR calculated 113.1 Not Available [facility] [address] [address], [place], [address], 06/10/2024 16:28:02 06/10/20 24 06/10/2024 CMP (FEMA LE) total protein 8.2 g/dL 6.0-8. 5 Not Available [facility] [address] [facility], [place], [address], 06/10/2024 16:28:02 06/10/2006/10/2024 CMP (FEMA LE) total bilirubin 0.8 mg/dL 0.2-1. 3 Not Available [facility] [address] [facility] [address], [place], [address], 06/10/2024 16:28:02 06/10/2006/10/2024 CMP (FEMA LE) albumin 5.0 g/dL 3.5-5. 5 Not Available [facility] [address] [facility], [place], [address], 06/10/2024 16:28:02 06/10/2006/10/2024 CMP (FEMA LE) globulin 3.2 calc Not Available [facility] [address] [facility], [place], [address], 06/10/2024 16:28:02 06/10/20 24 06/10/2024 CMP (FEMA LE) AST (SGOT) 32.0 U/L 0.0-46 .0 Not Available [facility] [address] [facility] [address], [place], [address], 06/10/2024 16:28:02 06/10/2006/10/2024 CMP (FEMA LE) altv (SGPT) 24.0 U/L 13.0-6 9.0 normal Not Available [facility] [address] [facility] [address], [place], [address], 06/10/2024 16:28:02 06/10/20 24 06/10/2024 CMP (FEMA LE) A/G ratio 1.6 ratio Not Available [facility] [address] [facility] [address], [place], [address], 06/10/2024 16:28:02 06/10/20 24 06/10/2024 CMP (FEMA LE) ALP phos 107.0 U/L 30.0-1 40.0 normal Not Available [facility] [address] [facility] [address], [place], [address], 06/10/2024 16:28:02 06/10/2006/10/2024 CMP (FEMA LE) calcium 10.3 mg/dL 8.4-10 .5 Not Available [facility] [address] [facility] [address], [place], [address], 06/10/2024 16:28:02 06/10/20 24 06/10/2024 CMP (FEMA LE) sodium 140.0 mmol/ L 136.0- 145.0 Not Available [facility] [address] [facility] [address], [place], [address], 06/10/2024 16:28:02 06/10/20 24 06/10/2024 CMP (FEMA LE) potassium 4.3 mmol/ L 3.5-5. 1 Not Available [facility] [address] [facility] [address], [place], [address], 06/10/2024 16:28:02 06/10/2006/10/2024 CMP (FEMA LE) chloride 101.0 mmol/ L 98.0-1 10.0 normal Not Available [facility] [address] [facility] [address], [place], [address], 06/10/2024 16:28:02 06/10/2006/10/2024 CMP (FEMA LE) C02 29.0 mmol/ L 22.0-3 1.0 Not Available [facility] [address] [facility] [address], [place], [address], 06/10/2024 16:28:02 06/10/2006/10/2024 CMP (FEMA LE) anion gap 10.0 calc Not Available [facility] [address] [facility] [address], [place], [address], 06/10/2024 16:28:02 06/10/2006/10/2024 CMP (FEMA LE) osmolality 290.1 calc Not Available [facility] [address] [facility] [address], [place], [address], 06/10/2024 16:28:02 06/10/2006/14/2024 IRON, TIBC AND PHILLIP TIN PANEL iron, total 116 mcg/d L 45-160 normal Not Available [address] [address] [place], [address], 06/14/2024 07:43:23 06/10/2006/14/2024 IRON, TIBC AND PHILLIP TIN PANEL iron binding capacity 282 mcg/d L_(ca lc) 250-45 0 normal Not Available [address] [address] [place], [address], 06/14/2024 07:43:23 06/10/2006/14/2024 IRON, TIBC AND PHILLIP TIN PANEL % saturation 41 %_(ca lc) 16-45 normal Not Available [address] [address] [place], [address], 06/14/2024 07:43:23 06/10/20 24 06/14/2024 IRON, TIBC AND PHILLIP TIN PANEL ferritin 104 NG/mL 16-232 normal Not Available [employer] [address] [address] [place], [address], 06/14/2024 07:43:23 06/10/20 24 06/14/2024 MAGNE SIUM magnesium 2.1 mg/dL 1.5-2. 5 normal Not Available [address], [address], 06/14/2024 07:43:25 06/10/2006/14/2024 C-MARCO A CTIVE PROTE IN C-reactive protein <3.0 mg/L <8.0 normal Not Available [address], [address], 06/14/2024 07:43:26 06/10/2006/14/2024 VITAM IN B12/F OLATE , SERUM PANEL vitamin B12 630 pg/mL 200-11 00 normal Not Available [address], [address], 06/14/2024 07:43:27 06/10/2006/14/2024 VITAM IN B12/F OLATE , SERUM PANEL folate, serum >24.0 NG/mL normal Refer ence Range Low: <3.4 Borde rline : 3.4-5 .4 Manisha l: >5.4 Not Available [address], [address], 06/14/2024 07:43:27 06/10/2006/14/2024 VITAM IN D,25- OH,TO YAZ,I A vitamin D,25-oh,tota l,ia 38 NG/mL 30-100 normal Vitam in D Statu s 25-OH Vitam in D: Defic iency : <20 ng/mL Insuf ficie ncy: 20 - 29 ng/mL Optim al: > or = 30 ng/mL For 25-OH Vitam in D testi ng on patie nts on D2-thomas pplem entat ion and patie nts for whom quant itati on of D2 and D3 fract ions is requi red, the [facility] Assur eD(TM ) 25-OH VIT D, (D2,D 3), LC/MS /MS is recom michelle d: order code 82656 (johnny ents >2yrs ). See Note 1 Note 1 For addit ional infor jina torrez refer to http: //gabbie rhodesost ics.c om/fa q/FAQ 199 (This link is being provi ded for infor magen jaramillo/ educkristi rinaldi l purpo ses only. ) Not Available [employer] [facility] [address] [place], [address], 06/14/2024 07:43:28 06/10/20 24 06/14/2024 VITAM IN B1 (THIA MINE) , BLOOD , LC/MS /MS vitamin B1 (thiamine), blood, lc/MS/MS 127 nmol/ L 78-185 (Note ) Vitam in suppl ement ation withi n 24 hours prior to blood draw may affec t the accur acy of the resul ts. This test was devel lukased and its shantell tical perfo rmanc e vy cteri stics have been deter mined by [facility]. It has not been clear ed or appro juan m by FDA. This assay has been valid ated pursu ant to the CLIA regul ation s and is used for clini lillian purpo ses. MDF med fusio n [address] [facility] [address] [facility] [address] [phone] Maria Luisa Duque MD, PhD Not Available [employer] [facility] [address] [address], [place], [address], 06/14/2024 07:43:29 09/22/19 25 09/24/2024 CULTU RE, URINE , ROUTI NE culture, urine, routine SEE NOTE abnormal CULTU RE, URINE , ROUTI NE Micro Numbe r: [id number] Test Statu s: Final Speci men Sourc e: Urine Speci men Quali ty: Adequ ate Resul t: 50,00 0-100 ,000 CFU/m L of Esche almaz a coli E.col i ----- ----- ----- - INT JOHN AMOX/ CLAVU LANAT E S 4 AMP/S ULBAC SALGUERO S <=2 CEFAZ CLINT NR <=4 2 CEFEP MAREN S <=0.1 2 CEFTA ZIDIM E S <=1 CEFTR IAXON E S <=0.2 5 CIPRO FLOXA URIEL S <=0.0 6 GENTA MICIN S <=1 IMIPE NEM S <=0.2 5 LEVOF LOXAC IN S <=0.1 2 MEROP ENEM S <=0.2 5 NITRO FURAN TOIN S <=16 PIP/T AZOBA CTAM S <=4 TRIME THOPR IM/THOMAS LFA S <=20 S = Susce ptibl e I = Inter media te R = Resis tant NS = Not susce ptibl e SDD = Susce ptibl e Dose Depen dent * = Not Teste d NR = Not Repor rakesh NN = See Thera py Comme nts THERA PY COMME NTS Note 1: For infec tions other than uncom plica rakesh UTI cause d by E. coli, K. pneum oniae or P. mirab ilis: Cefaz clint is resis tant if JOHN > or = 8 mcg/m L. (Dist ingui shing susce ptibl e versu s inter media te for isola melina with JOHN < or = 4 mcg/m L requi res addit ional testi ng.) Note 2: For uncom plica rakesh UTI cause d by E. coli, K. pneum oniae or P. mirab ilis: Cefaz clint is susce ptibl e if JOHN <32 mcg/m L and predi cts susce ptibl e to the oral agent s cefac iris, cefdi celina, cefpo doxim e, cefpr ozil, cefur oxime , cepha lexin and lorac arbef . Not Available [employer] [facility] [address] [place], [address], 09/24/2024 20:36:37 09/22/19 25 09/22/2024 urina lysis , dipst ick Leukocytes Small Not Available [facility] [address] [place], [address], 09/22/2024 10:58:25 09/22/19 25 09/22/2024 urina lysis , dipst ick Nitrite negati ve Not Available [facility] ([facility]) [address] [place], [address], 09/22/2024 10:58:25 09/22/19 25 09/22/2024 urina lysis , dipst ick Urobilinogen .2 Not Available [facility] ([facility]) [address] [place], [address], 09/22/2024 10:58:25 09/22/19 25 09/22/2024 urina lysis , dipst ick Protein Negati ve Not Available [facility] ([facility]) [address] [place], [address], 09/22/2024 10:58:25 09/22/19 25 09/22/2024 urina lysis , dipst ick pH 5.5 Not Available [facility] ([facility]) [address] [place], [address], 09/22/2024 10:58:25 09/22/19 25 09/22/2024 urina lysis , dipst ick Blood Small Not Available [facility] ([facility]) [address] [place], [address], 09/22/2024 10:58:25 09/22/19 25 09/22/2024 urina lysis , dipst ick Specific [place] 1.010 Not Available [facility] ( [facility]) [address] [place], [address], 09/22/2024 10:58:25 09/22/19 25 09/22/2024 urina lysis , dipst ick Ketone Negati ve Not Available [facility] ([facility]) [address] [place], [address], 09/22/2024 10:58:25 09/22/19 25 09/22/2024 urina lysis , dipst ick Bilirubin Negati ve Not Available [facility] ([facility]) [address] [place], [address], 09/22/2024 10:58:25 09/22/19 25 09/22/2024 urina lysis , dipst ick Glucose Negati ve Not Available [facility] ([facility]) [address] [place], [address], 09/22/2024 10:58:25 09/22/19 25 09/22/2024 urina lysis , dipst ick Appearance Clear Not Available [facility] [address] [place], [address], 09/22/2024 10:58:25 09/22/19 25 09/22/2024 urina lysis , dipst ick Color Yellow Not Available [facility] [address] [place], [address], 09/22/2024 10:58:25 Result Notes None recorded. Problems Name Problem SNOMED Code Status Onset Date Resolution Date Notes Provider Name and Address Organization Details Recorded Time History of polyp of colon 009730864 Active 2023 CELESTINA gan [facility] 4 13:18:09 Hemorrho ids 62938684 Active 2023 CELESTINA gan [facility] 4 13:18:41 Palpitat ions 30904292 Active 2023 CELESTINA gan [facility] 4 13:18:52 Statin declined 719602627 Active 2023 Pt has concerns statins cause Dementia . 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 4 13:14:17 Problem Notes None recorded. Procedures Surgical History Date Name Laterality Status Provider Name and Address Organization Details Recorded Time 02/14/20 24 radiography of shoulder completed CELESTINA JACOBSEN [facility] 02/15/2024 19:37:44 08/01/20 23 MRI of cervical spine completed CELESTINA JACOBSEN [facility] 08/08/2023 16:14:15 06/26/20 23 ultrasonography of soft tissue completed CELESTINA JACOBSEN [facility] 06/27/2023 14:17:30 03/06/20 23 radiography of cervical spine completed CELESTINA JACOBSEN [facility] 03/09/2023 17:28:06 07/16/20 20 screening for malignant neoplasm of cervix completed CELESTINA JACOBSEN [facility] 02/13/2024 13:21:26 12/15/19 20 mammography completed CELESTINA JACOBSEN [facility] 02/13/2024 13:22:14 04/14/20 16 Colonoscopy completed CELESTINA JACOBSEN [facility] 02/13/2024 13:20:48 Imaging Results None recorded. Procedure Notes None recorded. Medical Equipment None Reported. Allergies Allergen ID Allergen Name Allergen Category Reaction Reaction Severity Criticality Documentation Date Start Date Code Code System Note Provider Name and Address Organization Details Recorded Time 5148 Lamisil medicatio n Not available Not available Not available 03/03/2023 40169 6 RxNorm Heada elijah *into leran ce* CELESTINA gan [facility] 14:27:35 33605 Lamisil Defense medicatio n headache Not available Not available 03/24/2023 67486 6 RxNorm React ion: Heada elijah;* intol eranc e*; Comme nt: Recor ded 10/04 9:22A M by Juanito ramirez CMT, Offic e Visit ; Promo rakesh; Cynthia goldman ce: *; Reaso n: Drug aller gy; ; CELESTINA gan [facility] 4 13:15:02 Medications Name Sig Start Date Stop Date Status Note LastModified by Organization Details LastModified Time celecoxib 200 mg capsule TAKE 1 CAPSULE BY MOUTH ONCE DAILY 02/13 completed Not Available Not Available Not Available cyclobenz aprine 10 mg tablet TAKE 1 TABLET BY MOUTH THREE TIMES DAILY NEEDED FOR 10 DAYS 02/13 completed Not Available Not Available Not Available dicyclomi ne 20 mg tablet TAKE 1 TABLET BY MOUTH 4 TIMES DAILY NEEDED FOR 10 DAYS 03/06 completed Not Available Not Available Not Available metoprolo l succinate ER 25 mg tablet,ex tended release 24 hr TAKE 1 TABLET BY MOUTH IN THE EVENING active Not Available Not Available No t Available Prempro 0.625 mg-2.5 mg tablet Take 1 tablet every day by oral route for 90 days. 08/07 completed Not Available Not Available Not Available ibuprofen 600 mg tablet TAKE 1 TABLET BY MOUTH THREE TIMES DAILY NEEDED FOR 10 DAYS 09/22 completed Not Available Not Available Not Available naproxen 500 mg tablet Take 1 tablet by mouth twice daily as needed 03/06 completed Not Available Not Available Not Available amoxicill in 875 mg-potass ium clavulana te 125 mg tablet TAKE 1 TABLET BY MOUTH TWICE DAILY FOR 7 DAYS 02/03 completed Not Available Not Available Not Available Multivita min 50 Plus tablet Take by oral route. active Not Available Not Available No t Available Vitamin C daily 06/10 completed 0; Recorded 10/04/19 9:22AM by Celestina Jacobsen CMT, Office Visit; Not Available Not Available Not Available L-Lysine 02/12 completed Not Available Not Available Not Available aspirin qd 08/07 completed 0; Recorded 10/04/19 9:22AM by Celestina Jacobsen CMT, Office Visit; Not Available Not Available Not Available zinc daily 06/10 completed 0; Recorded 10/04/19 9:22AM by Celestina Jacobsen CMT, Office Visit; Not Available Not Available Not Available naproxen two times daily, as needed 08/07 completed Recorded 10/12/19 11:03AM by Celestina Jacobsen CMT, Historic al Summary; Refill Quantity : 60; Tablet; Not Available Not Available Not Available Prempro daily 08/07 completed Recorded 11/14/19 5:23PM by Celestina Jacobsen CMT, Historic al Summary; Refill Quantity : 0; Not Available Not Available Not Available metoprolo l succinate qd 08/[address] Hawkins; 0; Recorded 10/04/19 9:22AM by Celestina Jacobsen CMT, Office Visit; Not Available Not Available Not Available Vitamin D3 daily 06/10 completed 0; Recorded 10/04/19 9:22AM by Celestina Jacobsen CMT, Office Visit; Not Available Not Available Not Available Mag-SR daily 06/10 completed 79428; Recorded 04/09/20 7:48AM by Celestina Jacobsen CMT (i candice through [facility]), Office Visit; Refill Quantity : 90; Tablet; Not Available Not Available Not Available cyclobenz aprine 7.5 mg tablet Take 1 tablet 3 times a day by oral route as needed for 10 days. 02/12 completed Not Available Not Available Not Available EpiPen 2-Adalberto 0.3 mg/0.3 mL injection , auto-inje ctor INJECT 1 MILLILIT ER DIRECTED ON PACKAGIN G, REPORT TO THE ER IMMEDIAT NORY AFTER USE 06/10 completed Not Available Not Available Not Available aspirin 81 mg capsule Take 1 capsule every day by oral route. 02/13 completed Not Available Not Available Not Available Vitals Date Recorded Body height Body mass index (BMI) Body weight Body temperature Oxygen saturation Oxygen saturation in Arterial blood by Pulse oximetry Heart rate Systolic And Diastolic Provider Name and Address Organization Details Last Updated DateTime 5 154.94 cm 24.8 kg/m2 29745.3 g 98.4 [degF] 99 % 99 % 68 /min 126/74 mm[Hg] [facility] 5 11:26:03 Date Recorded Body height Body mass index (BMI) Body weight Oxygen saturation Oxygen saturation in Arterial blood by Pulse oximetry Heart rate Respiratory rate Systolic And Diastolic Provider Name and Address Organization Details Last Updated DateTime 5 154.94 cm 23.8 kg/m2 00736.6 4 g 98 % 98 % 68 /min 20 /min 104/68 mm[Hg] CELESTINA JACOBSEN [facility] 5 15:50:10 Date Recorded Body height Body mass index (BMI) Body weight Body temperature Heart rate Oxygen saturation Oxygen saturation in Arterial blood by Pulse oximetry Systolic And Diastolic Provider Name and Address Organization Details Last Updated DateTime 4 154.94 cm 24.1 kg/m2 37252.3 3 g 97.9 [degF] 66 /min 99 % 99 % 118/60 mm[Hg] [facility] 4 12:25:13 Date Recorded Body height Oxygen saturation Oxygen saturation in Arterial blood by Pulse oximetry Heart rate Respiratory rate Systolic And Diastolic Provider Name and Address Organization Details Last Updated DateTime 4 154.94 cm 99 % 99 % 62 /min 18 /min 132/90 mm[Hg] CELESTINA JACOBSEN [facility] 4 13:45:38 Date Recorded Body height Body mass index (BMI) Body weight Heart rate Respiratory rate Systolic And Diastolic Provider Name and Address Organization Details Last Updated DateTime 4 154.94 cm 24.6 kg/m2 35955.0 1 g 60 /min 18 /min 120/78 mm[Hg] CELESTINA JACOBSEN [facility] 4 10:11:57 Social History Question Answer Notes LastModified by Organizat ion Details LastModified Time Tobacco Smoking Status Former Smoker CELESTINA JACOBSEN [facility] 03/03/2023 14:28:44 What Is Your Level Of Caffeine Consumption? None [email or web address] Information not available 02/03/2025 When Did You Quit Smoking? 16+yearssinc elastcigaret te Information not available 08/05/2024 What Was The Date Of Your Most Recent Tobacco Screening? 02/03/2025 Information not available 02/03/2025 What Is Your Current Pack Years? 10-19packyea rs Information not available 08/05/2024 What Is Your Relationship Status? [email or web address] Information not available 03/03/2023 At What Age Did You Start Smoking Tobacco? 15 Information not available 08/05/2024 How Much Tobacco Do You Smoke? No Information not available 08/05/2024 Has Tobacco Cessation Counseling Been Provided? Yes Information not available 08/05/2024 On What Date Was Tobacco Cessation Counseling Provided? 02/03/2025 Information not available 02/03/2025 How Many Years Have You Smoked Tobacco? 15 Information not available 08/05/2024 Sex: Unknown Functional Status Question Answer Note LastModified by Organizat ion Details LastModified Time Do you use any illicit or recreational drugs? No Information not available 03/03/2023 Do you or have you ever used any other forms of tobacco or nicotine? No occasionally uses a nicotine patch to get the Niacin Information not available 08/05/2024 What is your level of alcohol consumption? Occasional Information not available 03/03/2023 Are you currently employed? Yes [email or web address] Information not available 02/13/2024 Are you able to walk? YESWOREST [email or web address] Information not available 02/03/2025 Are you able to care for yourself? Yes [email or web address] Information not available 03/03/2023 Do you or have you ever used any nicotine-free cigarettes, vape, or chewing tobacco? No Information not available 08/05/2024 Mental Status None recorded. Family History Relationship Description Onset Age of this Age Resolved Age Notes LastModified by Organization Details LastModified Time Mother Cerebrovascu lar accident [email or web address] Not available 14:28:00 Mother Essential hypertension [email or web address] Not available 14:28:13 Maternal Grandfather Type 2 diabetes mellitus [email or web address] Not available 02/12 13:16:14 Maternal Uncle Malignant neoplasm of lung [email or web address] Not available 02/12 13:17:05 Medical History Condition Response Anxiety Disorder Y Gynecological HistoryNo gynecological history recorded. Obstetrics History GPAL:G 0 P 0 0 0 0 Immunizations Vaccine Type Date Status Note Provider Nam e and Address Organization Details Recorded Time Tdap 7 completed Not Available [facility] 03/24/2023 02:50:53 Influenza, split virus, trivalent, preservative 2 completed Not Available [facility] 03/24/2023 02:50:53 Tdap 2 completed Not Available [facility] 03/24/2023 02:50:54 Past Encounters Encounter ID Performer Location Encounter Start Date Encounter Closed Date Diagnosis/Indication Diagnosis SNOMED-CT Code Diagnosis ICD10 Code Diagnosis Note [id number] TRENT PADILLA [facility] ([facility]) [address] [place] [address] 12/28/2022 13:52:48 01/08/2023 12:28:02 Abdominal pain 30521548 R10.9 It's time for labs now anyway, so will get some today. She reports the pain is worse after eating. She had some spinach salad and she thinks this made it worse. Trouble seems to come and go. Last colonoscop y was 7 years ago. [id number] TRENT PADILLA [facility] ([facility]) [address] [place] [address] 01/02/2023 09:04:02 01/02/2023 14:45:40 Abdominal pain 60300509 R10.9 [id number] TRENT PADILLA [facility] ([facility]) [address] [place] [address] 03/06/2023 09:05:39 03/06/2023 09:58:11 Paresthesia of upper limb 33672670 R20.2 [id number] TRENT PADILLA [facility] ([facility]) [address] [place] [address] 06/15/2023 08:56:18 06/15/2023 10:11:43 Mass of skin 409660956 R22.9 Thoracic back pain 76805 8004 M54.6 History of scoliosis. [id number] TRENT PADILLA [facility] ([facility]) [address] [place] [address] 06/26/2023 09:42:42 06/26/2023 16:58:51 [id number] TRENT PADILLA [facility] ([facility]) [address] [place] [address] 08/07/2023 15:31:34 08/07/2023 16:38:31 Neck pain 56178697 M54.2 Recent MRI at [facility]. She will make a follow-up with them. [place] pals y of left side of face 2831066663 1107516 G51.0 Resolved. Continues taking Lysine. [id number] SIRIA PINO [facility] ([facility]) [address] [place] [id number] 11/27/2023 15:56:36 11/27/2023 16:32:18 Low back pain 757916120 M54.50 Will send x-ray for over read. Will start cyclobenza tiffani today. Discussed with patient that she should perform light stretches at home twice daily as well as ice/heat as tolerated. Patient was given a hand out on light back stretches to perform at home. If no improvemen t in 1 week, should follow up with PCP for re-evaluat ed. Patient verbalizes understand ing. [id number] YANETH IRIZARRY [facility] ([facility]) [address] [place] [id number] 02/14/2024 12:17:19 02/14/2024 13:55:12 Adult health examination 322212242 Z00.00 Pain of le ft shoulder joint 4669721385 2762028 M25.512 Palpitations 75239847 R0 0.[address] Hawkins. Hyperlipidemia 69745006 E78.5 Diet and exercise. [id number] JOHANNY MONTES [facility] ([facility]) [address] [place] [id number] 06/06/2024 12:17:33 06/06/2024 13:31:50 [id number] YANETH IRIZARRY [facility] ([facility]) [address] [place] [id number] 06/10/2024 13:16:06 06/10/2024 14:53:35 Headache 87439726 R51.9 Numbness a nd tingling sensation of skin 2362611223 02 R20.2 left face, left arm, left thigh [id number] YANETH IRIZARRY [facility] ([facility]) [address] [place] [id number] 08/05/2024 09:21:57 08/05/2024 10:24:33 Neuralgia 44525165 M79.2 Follows with neurology. Palpitations 64040092 R0 0.[address] Hawkins. Continue metoprolol . [id number] Checo Gonzalez DO [facility] ([facility]) [address] [place] [id number] 09/22/2024 10:55:00 09/22/2024 12:03:07 Dysuria 27736012 R30.0 Acute urin sean tract infection 834987641 N39.0 I reviewed UA results and discussed with pt. We will start antibiotic s. Pt will increase oral fluids and can use cranberry. Return to office with no improvemen t or any problems. Go to ER with severe worsening or severe problems.W e will obtain urine culture [id number] TRENT PADILLA [facility] ([facility]) [address] [place] [address] 02/03/2025 15:11:03 02/03/2025 16:14:19 Neuralgia 24769175 M79.2 Follows with neurology. She is taking Cayenne Pepper shots now. Mammogram declined 59079 5004 Z53.20 Discussed with patient the benefits of early detection, the role of screening mammograms , and the risks associated with delaying or refusing screening. She does not wish to schedule an appointmen t for screening at this time. Palpitations 93037471 R0 0.[address] Hawkins. Continue metoprolol . Recently had a stress test. Health Concerns Section Related Observation LastModified by Organization Detai ls LastModified Time None Recorded Concern Status LastModified by Organization Details LastModified Time None Recorded Advance Directives Directive None Recorded Payers Insurance Date Sequence Insurance Name Policy Number Policy Conrad Covered Member ID Conrad Member ID Guarantor Name 01/31/2025 1 [employer] [place] (MEDICA[place] REPLACEMENT - HMO) [id number] Dalia Nguyen [id number] Dalia Nguyen Notes Date Note Type Note Provider Name and Address Organization Details Recorded Time 06/06/2024 text/html [facility] for the last couple days. Got a CT scan a year ago and was seeing Dr Holguin. TRENT NEWBY [address] [place] [address], [phone], [facility], L.LErvinCErvin 06/06/2024 12:53:26 06/10/2024 text/html HeadacheReported bypatient.Location:uni lateral; bilateral; occipital; frontal; temporal Quality:throbbing Severity:worse Duration:constant Onset/Timing:worse/per sistent since: (past 2 weeks) Context:not related to trauma Associated Symptoms:no confusion; no slurred speech; no double vision;tingling;dizzin ess;sleep disturbances YANETH IRIZARRY, [address], [address], [facility], LCaty. 06/10/2024 14:44:06 08/05/2024 text/html HeadacheReported bypatient.Location:uni lateral; bilateral; occipital; frontal; temporal Quality:throbbing Severity:worse Duration:constant Onset/Timing:worse/per sistent since: (past 2 weeks) Context:not related to trauma Associated Symptoms:no confusion; no slurred speech; no double vision;tingling;dizzin ess;sleep disturbances YANETH IRIZARRY, [address], [address], [facility], LCaty. 08/05/2024 10:22:30 09/22/2024 text/html [facility] has lower abdominal pain, frequency and urgency 3 days, with some right kidney ward.mild fever yesterday. no chills. no n/v/d. Checo Gonzalez, [address], [address], [facility], LNegra 09/22/2024 12:02:01 02/03/2025 text/html Annual WellnessReported bypatient.Diet and Nutrition:healthy diet; discussed vitamin and supplement use Physical Activity:exercises on a regular basis Additional Lifestyle Factors:no tobacco use; no alcohol intake YANETH IRIZARRY, [address], [address], [facility], LErvinLJeimy. 02/03/2025 16:13:33 OBGyn Episode No OBEpisode recorded.
[2025-03-10 08:37] LABS: Hematocrit 42.6 % (36-47); Hemoglobin 14.00 g/dL (11.27-16.99); Mean Corpuscular HGB Conc 32.9 g/dL (30-55); Mean Corpuscular Hemoglobin 29.5 pg (27-33); Mean Corpuscular Volume 89.7 fl (85-98); Nucleated Red Blood Cells % 0 %; Platelet Count 183 10^3/cmm (157-399); Red Blood Count 4.75 10^6/uL (3.85-5.65); White Blood Count 4.47 10^3/uL (3.29-11.43)
--- NOTE | 2025-03-10 08:49 | XRR_ITS ---
PROCEDURE INFORMATION: Exam: XR Thoracic Spine Exam date and time: 03/10/2025 8:59 AM Age: 59 years old Clinical indication: Pain in thoracic spine TECHNIQUE: Imaging protocol: Radiologic exam of the thoracic spine. Views: 3 views. COMPARISON: CR XR thoracic spine 3V* [id number] 07/12/2023 8:08 AM FINDINGS: Bones/joints: There is a mild S shaped curvature the thoracolumbar spine. This is unchanged from 09/11/2022. Soft tissues: Unremarkable. XR/XR thoracic spine 3V* [id number] IMPRESSION: No acute osseous findings.
[2025-03-10 08:53] LABS: Troponin(5th) Baseline < 6 ng/L (0-10)
[2025-03-10 08:56] LABS: Alanine Aminotransferase 23 U/L (0-33); Albumin Level 4.4 g/dL (3.5-5.2); Alkaline Phosphatase 118 U/L (35-105); Anion Gap 15.2 (5-19); Aspartate Amino Transferase 27 U/L (0-32); Blood Urea Nitrogen 12 mg/dL (6-20); Calcium 9.4 mg/dL (8.5-10.5); Carbon Dioxide 27 mmol/L (22-29); Chloride 102 mmol/L (98-107); Creatinine Clr Calc Pharmacy 98.2252; Globulin 2.7 g/dL (1.3-4.6); Glucose 92 mg/dL (65-115); Osmolality Calculated 289 mOsm/kg (285-295); Potassium 4.2 mmol/L (3.5-5.1); Sodium 140 mmol/L (136-145); Total Protein 7.1 g/dL (6.6-8.7)
[2025-03-10 09:27] VITALS: BP 147/87; PULSE 52; O2SAT 99
--- NOTE | 2025-03-10 10:07 | ECG_ITS ---
[facility] Test Date: 2025-03-10 Pat Name: Dalia Nguyen Department: Room: Gender: Female Station Captain: : 1965 Requested By: Manolo Moffett Order Number: [id number] Gennaro MD: Addy Sotomayor M.D. Measurements Intervals [place] Rate: 51 P: 60 NH: 158 QRS: 90 QRSD: 92 T: 70 QT: 410 QTc: 378 Interpretive Statements SINUS BRADYCARDIA WITH SINUS ARRHYTHMIA INCOMPLETE RIGHT BUNDLE BRANCH BLOCK [90+ ms QRS DURATION, TERMINAL R IN V1/V2, 40+ ms S IN I/aVL/V4/V5/V6] Compared to ECG 03/10/2025 08:12:24 Incomplete right bundle-branch block now present Myocardial infarct finding no longer present Electronically Signed On 03-10-2025 15:00:57 CDT by Addy Sotomayor M.D. [email or web address]
[2025-03-10 10:39] LABS: Troponin 5 2HR < 6.0 ng/L (0-10); Troponin 5 2HR Delta 0 ABS# (0-10)
[2025-03-10 11:14] VITALS: BP 118/76; PULSE 58; O2SAT 100
[2025-03-10 12:02] VITALS: BP 118/76; PULSE 61; O2SAT 100
--- NOTE | 2025-03-10 17:36 | DCPLANNER ---
Patient needs Holter monitor -Cardiac enzymes undetectable at 1 and 2 hours should be pain for 2 weeks cardiac EKG does not show any acute changes will discharge patient home have her follow-up with primary care. Reviewed her chart she has had negative stress testing in September 2022 and prior to that in December 2021 echocardiogram done June 2023 was also negative. Suspect based on her characterization of the pain it is more musculoskeletal. No sign of pneumonia or pneumothorax no widening of the mediastinum. Patient's not been tachycardic or hypoxic no sign of PE at this time.
== END 2025-03-10 12:03 | disposition home or self-care (01) ==
PROVIDERS: Emergency Provider Family Medicine; PCP Nurse Practitioner Family
DX: R07.89 Other chest pain (principal); E78.5 Hyperlipidemia, unspecified; Z79.899 Other long term (current) drug therapy; Z88.8 Allergy status to other drugs, medicaments and biological substances; Z87.891 Personal history of nicotine dependence
CPT/HCPCS: 36415; 71045; 72072; 80053; 84484; 85025; 93005; 99285; J9999

== ENCOUNTER 2025-08-18 17:16 | Emergency (ER) | payer BC, MEDICAID, SELFPAY ==
[2025-08-18 17:20] VITALS: BP 144/80; PULSE 70; RESP 17; TEMP 36.5; O2SAT 99; BMI 23.6
--- NOTE | 2025-08-18 17:20 | CTR_ITS ---
PROCEDURE INFORMATION: Exam: CT Head Without Contrast Exam date and time: 08/18/2025 5:26 PM Age: 60 years old Clinical indication: Stroke-like symptoms; Altered mental status/memory loss; Left upper extremity numbness/paresthesia; Additional info: Symptoms of acute stroke TECHNIQUE: Imaging protocol: Computed tomography of the head without contrast. Radiation optimization: All CT scans at this facility use at least one of these dose optimization techniques: automated exposure control; mA and/or kV adjustment per patient size (includes targeted exams where dose is matched to clinical indication); or iterative reconstruction. Other technique: STROKE PROTOCOL was implemented. COMPARISON: MR head wo/w con [id number] 07/17/2023 3:23 PM RADIATION DOSE METRICS: Total DLP (mGy-cm): 1046.79 FINDINGS: Brain: No acute infarct. No acute hemorrhage. Unremarkable white matter for age. No midline shift. Cerebral ventricles: No significant ventriculomegaly. Paranasal sinuses: Partially seen opacification of the left maxillary sinus. Mastoid air cells: Mastoid air cells are well-aerated. Orbital cavities: Visualized portions of the orbits are unremarkable. Bones: No displaced calvarial fracture identified. Soft tissues: No acute soft tissue findings. CT/CT head thrombolytic [id number] IMPRESSION: No acute intracranial abnormality. ASSESSMENT: ASPECTS ([place] Stroke Program Early CT Score) is 10.
--- OUTSIDE RECORDS SUMMARY | 2025-08-18 17:21 | XMS_ITS | Data Portability ---
Author Organization Sarah Dominguez [facility] Address [address] [place] [address] Care Team Providers Care Tool Pusher Name Role Phone EDIEDARRELLN Primary Care Provider Unavailabl e Assessment Encounter Date Assessment Date Assessment LastModified by Organization Details LastModified Time 08/05/2024 08/05/2024 Patient here today for a [...] reports she had a test done in [place] to test for Sepulveda's Palsy and he mentioned something about rechecking the MRI but she cancelled because she didn't really feel like it is necessary. She has follow-up with Dr. Hawkins next month. Discussed pap testing but she declines at this time. Not available 02/03/2025 16:07:57 03/19/2025 03/19/2025 Patient here for a follow-up from the ER. Overall she has been doing well. She has been taking cayenne pepper daily for about 6 months but recently decided to increase this to twice daily. She stopped the cayenne pepper all together now and the pain has subsided. If she decides to restart the supplement, she will go back to once daily. Not available 03/19/2025 14:43:36 Plan of Treatment Reminders Order Date Submit Date Provider Last Modified By Organization Details Last Modified Time Details Appointments None recorded. Lab culture, urine 2024 025 [email or web address], [address] [place] [address] [address], [address], [place], [address], 5 00:32:06 urinalysis, dipstick 2024 025 [facility] ([facility]), [address] [place], [address], 5 16:59:38 urinalysis, dipstick 2024 025 [email or web address] [facility] ([facility]), [address] [place], [address], 5 21:39:17 culture, urine 2024 025 NORVELL [place] [employer] [facility], [address] [place] [address] 248, [address] , [place], [address], 5 20:36:38 Referral None recorded. Procedures None recorded. Surgeries None recorded. Imaging None recorded. Medication Orders tizanidine 2 mg tablet 2024 025 [facility], [address], [place], [address], 17:08:43 metoprolol succinate ER 25 mg tablet,exte nded release 24 hr 2024 025 [facility], [address], [place], [address], 5 14:44:50 amoxicillin 875 mg-potassiu m clavulanate 125 mg tablet 2024 025 [facility], [address], [place], [address], 15:46:38 Patient TargetsNo targets recorded. Patient Instructions Encounter Date Encounter Id Patient Instructions Last Modified By Organization Details Last Modified Time 08/05/2024 [id number] Call or return for questions or concerns. Not available 08/05/2024 10:09:51 02/03/2025 [id number] Call or return for questions or concerns. Not available 02/03/2025 16:08:29 Reason for Referral None Reported. Results Created Date Observation Date Name Description Value Unit Range Abnormal Flag Note LastModifiedBy Organization Detail LastModifiedTime 09/22/1909/24/2024 CULTU RE, URINE , ROUTI NE culture, urine, routine SEE NOTE abnormal CULTU RE, URINE , ROUTI NE Micro Numbe r: [id number] Test Statu s: Final Speci men [...] lexin and lorac arbef . Not Available [facility] [id number] [place] [address], [address], 09/24/2024 20:36:37 09/22/19 25 09/22/2024 urina lysis , dipst ick Leukocytes Small Not Available [facility] [address] [place] [address], [address], 09/22/2024 10:58:25 09/22/19 25 09/22/2024 urina lysis , dipst ick Nitrite negati ve Not Available [facility] ([facility]) [address] [place] [address], [address], 09/22/2024 10:58:25 09/22/19 25 09/22/2024 urina lysis , dipst ick Urobilinogen .2 Not Available [facility] ([facility]) [address] [place] [address], [address], 09/22/2024 10:58:25 09/22/19 25 09/22/2024 urina lysis , dipst ick Protein Negati ve Not Available [facility] ([facility]) [address] [place] [address], [address], 09/22/2024 10:58:25 09/22/19 25 09/22/2024 urina lysis , dipst ick pH 5.5 Not Available [facility] ([facility]) [address] [place], [address], 09/22/2024 10:58:25 09/22/19 25 09/22/2024 urina lysis , dipst ick Blood Small Not Available [facility] ([facility]) [address] [place], [address], 09/22/2024 10:58:25 09/22/19 25 09/22/2024 urina lysis , dipst ick Specific Thatcher 1.010 Not Available [facility] ( [facility]) [address] [place], [address], 09/22/2024 10:58:25 09/22/19 25 09/22/2024 urina lysis , dipst ick Ketone Negati ve Not Available [facility] ([facility]) [address] [place], [address], 09/22/2024 10:58:25 09/22/19 25 09/22/2024 urina lysis , dipst ick Bilirubin Negati ve Not Available [facility] ([facility]) [address] [place], [address], 09/22/2024 10:58:25 09/22/19 25 09/22/2024 urina lysis , dipst ick Glucose Negati ve Not Available [facility] ([facility]) [address] [place], [address], 09/22/2024 10:58:25 09/22/19 25 09/22/2024 urina lysis , dipst ick Appearance Clear Not Available [facility] ([facility]) [address] [place], [address], 09/22/2024 10:58:25 09/22/19 25 09/22/2024 urina lysis , dipst ick Color Yellow Not Available [facility] ([facility]) [address] [place], [address], 09/22/2024 10:58:25 04/02/20 25 04/03/2025 CULTU RE, URINE , ROUTI NE culture, urine, routine SEE NOTE CULTU RE, URINE , ROUTI NE Micro Numbe r: [id number] Test Statu s: Final Speci men Sourc e: Urine , clean catch Speci men Quali ty: Adequ ate Resul t: No Growt h Not Available [facility] [address] [place], [address], 04/04/2025 00:32:05 04/02/20 25 04/02/2025 urina lysis , dipst ick Leukocytes Negati ve Not Available [facility] ([facility]) [address] [place] [address], [address], 04/02/2025 16:53:20 04/02/20 25 04/02/2025 urina lysis , dipst ick Nitrite negati ve Not Available [facility] ([facility]) [address] [place] [address], [address], 04/02/2025 16:53:20 04/02/20 25 04/02/2025 urina lysis , dipst ick Urobilinogen .2 Not Available [facility] ([facility]) [address] [place] [address], [address], 04/02/2025 16:53:20 04/02/20 25 04/02/2025 urina lysis , dipst ick Protein Negati ve Not Available [facility] ([facility]) [address] [place] [address], [address], 04/02/2025 16:53:20 04/02/20 25 04/02/2025 urina lysis , dipst ick pH 5.5 Not Available [facility] ([facility]) [address] [place], [address], 04/02/2025 16:53:20 04/02/20 25 04/02/2025 urina lysis , dipst ick Blood Non-He molyze d: Trace Not Available [facility] ([facility]) [address] [place], [address], 04/02/2025 16:53:20 04/02/20 25 04/02/2025 urina lysis , dipst ick Specific Thatcher 1.010 Not Available [facility] ( [facility]) [address] [place], [address], 04/02/2025 16:53:20 04/02/20 25 04/02/2025 urina lysis , dipst ick Ketone Negati ve Not Available [facility] ([facility]) [address] [place], [address], 04/02/2025 16:53:20 04/02/20 25 04/02/2025 urina lysis , dipst ick Bilirubin Negati ve Not Available [facility] ([facility]) [address] [place], [address], 04/02/2025 16:53:20 04/02/20 25 04/02/2025 urina lysis , dipst ick Glucose Negati ve Not Available [facility] ([facility]) [address] [place], [address], 04/02/2025 16:53:20 04/02/20 25 04/02/2025 urina lysis , dipst ick Appearance Clear Not Available [facility] ([facility]) [address] [place], [address], 04/02/2025 16:53:20 04/02/20 25 04/02/2025 urina lysis , dipst ick Color Pale Yellow Not Available [facility] ([facility]) [address] [facility], [place], [address], 04/02/2025 16:53:20 Result Notes None recorded. Problems Name Problem SNOMED Code Status Onset Date Resolution Date Notes Provider Name and Address Organization Details Recorded Time Allergic rhinitis 29888142 Completed 201804/09/2019 Allergic Rhinitis - Status is Inactive ; Recorded 04/09/20 7:35AM by Celestina Jacobsen CMT, Annotati on/Adden dum; Promoted ; acuity set as *; Not Available [facility] 3 03:08:07 Vignesh son type IIa hyperlip oprotein emia 490584718 Active 2022 CELESTINA gan [facility] 4 13:14:33 Neuralgi a 38143079 Active 2022 CELESTINA gan [facility] 4 13:14:46 Hyperlip idemia 06779133 Active 2022 CELESTINA gan [facility] 4 13:14:17 History of polyp of colon 109490524 Active 2023 CELESTINA gan [facility] 4 13:18:09 Hemorrho ids 57749450 Active 2023 CELESTINA gan [facility] 4 13:18:41 Palpitat ions 81076569 Active 2023 CELESTINA gan [facility] 4 13:18:52 Statin declined 917534264 Active 2023 Pt has concerns statins cause Dementia . CELESTINA gan [facility] 4 19:36:55 Problem Notes None recorded. Procedures Surgical History Date Name Laterality Status Provider Name and Address Organization Details Recorded Time 03/10/20 25 plain X-ray of chest completed [facility] 03/19/2025 12:38:02 03/10/20 25 plain X-ray of thoracic spine completed [facility] 03/19/2025 12:38:28 10/09/19 25 cardiovascular stress testing completed [facility] 03/19/2025 12:37:44 02/14/20 24 radiography of shoulder completed [facility] 02/15/2024 19:37:44 08/01/20 23 MRI of cervical spine completed [facility] 08/08/2023 16:14:15 07/16/20 23 echocardiography completed [facility] 03/19/2025 12:34:37 06/26/20 23 ultrasonography of soft tissue completed [facility] 06/27/2023 14:17:30 03/06/20 23 radiography of cervical spine completed [facility] 03/09/2023 17:28:06 07/16/20 20 screening for malignant neoplasm of cervix completed [facility] 02/13/2024 13:21:26 12/15/19 20 mammography completed [facility] 02/13/2024 13:22:14 04/14/20 16 Colonoscopy completed [facility] 02/13/2024 13:20:48 Imaging Results None recorded. Procedure Notes None recorded. Medical Equipment None Reported. Allergies Allergen ID Allergen Name Allergen Category Reaction Reaction Severity Criticality Documentation Date Start Date Code Code System Note Provider Name and Address Organization Details Recorded Time 5148 Lamisil medicatio n Not available Not available Not available 03/03/2023 33622 6 RxNorm Heada elijah *into kristen ce* [facility] 14:27:35 89438 [employer] medic[employer] n headache Not available Not available 03/24/2023 55111 6 RxNorm React ion: Heada elijah;* intol eranc e*; Comme nt: Recor ded 10/04 9:22A M by Juanito ramirez, CMT, Offic e Visit ; Promo rakesh; Cynthia goldman ce: *; Reaso n: Drug aller gy; ; [facility] 4 13:15:02 Medications Name Sig Start Date Stop Date Status Note LastModified by Organization Details LastModified Time celecoxib 200 mg capsule TAKE 1 CAPSULE BY MOUTH ONCE DAILY 02/13 completed Not Available Not Available Not Available cyclobenz aprine 10 mg tablet TAKE 1 TABLET BY MOUTH THREE TIMES DAILY NEEDED FOR 10 DAYS 02/13 completed Not Available Not Available Not Available tizanidin e 2 mg tablet TAKE 1 TABLET BY MOUTH THREE TIMES DAILY NEEDED FOR MUSCLE PAIN active Not Available Not Available No t Available dicyclomi ne 20 mg tablet TAKE [...] Available Not Available Mag-SR daily 06/10 completed 31018; Recorded 04/09/20 7:48AM by Celestina Jacobsen CMT (Authori candice through [facility]), Office Visit; Refill Quantity : 90; Tablet; Not Available Not Available Not Available cyclobenz aprine 7.5 mg tablet Take 1 tablet 3 times a day by oral route as needed for 10 days. 02/12 completed Not Available Not Available Not Available EpiPen 2-Adalberto 0.3 mg/0.3 mL injection , auto-inje ctor INJECT 1 MILLILIT ER DIRECTED ON STUART G, REPORT TO THE ER IMMEDIAT NORY AFTER USE 06/10 completed Not Available Not Available Not Available aspirin 81 mg capsule Take 1 capsule every day by oral route. 02/13 completed Not Available Not Available Not Available Vitals Date Recorded Body height Body mass index (BMI) Body weight Body temperature Oxygen saturation Heart rate Systolic And Diastolic Provider Name and Address Organization Details Last Updated DateTime 5 154.94 cm 24.8 kg/m2 10527.3 g 98.4 [degF] 99 % 68 /min 126/74 mm[Hg] Victoria Vick [facility] 5 11:26:03 Date Recorded Body height Body mass index (BMI) Body weight Oxygen saturation Heart rate Respiratory rate Systolic And Diastolic Provider Name and Address Organization Details Last Updated DateTime 5 154.94 cm 23.8 kg/m2 18881.6 4 g 98 % 68 /min 20 /min 104/68 mm[Hg] CELESTINA JACOBSEN [facility] 5 15:50:10 Date Recorded Body height Body mass index (BMI) Body weight Oxygen saturation Heart rate Respiratory rate Systolic And Diastolic Provider Name and Address Organization Details Last Updated DateTime 5 154.94 cm 23.4 kg/m2 87787.4 5 g 98 % 80 /min 22 /min 132/68 mm[Hg] CELESTINA JACOBSEN [facility] 5 14:22:30 Date Recorded Body height Body mass index (BMI) Body weight Respiratory rate Oxygen saturation Heart rate Body temperature Systolic And Diastolic Provider Name and Address Organization Details Last Updated DateTime 5 154.94 cm 23.3 kg/m2 16656.9 6 g 18 /min 100 % 51 /min 97.9 [degF] 134/78 mm[Hg] DAO BYRD [facility] 5 16:33:04 Date Recorded Body height Body mass index (BMI) Body weight Heart rate Respiratory rate Systolic And Diastolic Provider Name and Address Organization Details Last Updated DateTime 4 154.94 cm 24.6 kg/m2 21827.0 1 g 60 /min 18 /min 120/78 mm[Hg] CELESTINA JACOBSEN [facility] 10:11:57 Social History Question Answer Notes LastModified by [employer] ion Details LastModified Time Tobacco Smoking Status Former Smoker quit in May 1994 DAOMadelaine BYRD malik [facility] 04/02/2025 16:34:20 What Is Your Level Of Caffeine Consumption? None [email or web address] Information not available 02/03/2025 When Did You Quit Smoking? 16+yearssin celastcisaniya ette Information not available 08/05/2024 What Was The Date Of Your Most Recent Tobacco Screening? 02/03/2025 Information not available 02/03/2025 What Is Your Current Pack Years? 10-packye rayne Information not available 08/05/2024 What Is Your Relationship Status? [email or web address] Information not available 03/03/2023 At What Age [...] use any illicit or recreational drugs? No [email or web address] Information not available 03/03/2023 Do you or have you ever used any other forms of tobacco or nicotine? No occasionally uses a nicotine patch to get the Niacin Information not available 08/05/2024 What is your level of alcohol consumption? Occasional [email or web address] Information not available 03/03/2023 Are you currently employed? Yes [email or web address] Information not available 02/13/2024 Are you able to walk independently without assistance or assistive devices? YESWOREST [email or web address] Information not available 02/03/2025 Are you able to care for yourself independently? Yes [email or web address] Information not available 03/03/2023 Do you or have you ever used any nicotine-free cigarettes, vape, or chewing tobacco? No Information not available 08/05/2024 Mental Status None recorded. Family History Relationship Description Onset Age of this Age Resolved Age Notes LastModified by Organization Details LastModified Time Mother Cerebrovascu lar accident [email or web address] Not available 14:28:00 Mother Essential hypertension [email or web address] Not available 14:28:13 Maternal Grandfather Type 2 diabetes mellitus Not available 02/12 13:16:14 Maternal Uncle Malignant neoplasm of lung [email or web address] Not available 02/12 13:17:05 Medical History Condition Response Anxiety Disorder Y Gynecological HistoryNo gynecological history recorded. Obstetrics History GPAL:G 0 P 0 0 0 0 Immunizations Vaccine Type Date Status Note Provider Nam e and Address Organization Details Recorded Time Tdap 7 completed Not Available [facility] 03/24/2023 02:50:53 Influenza, split virus, trivalent, preservative 2 completed Not Available [facility] 03/24/2023 02:50:53 Tdap 2 completed Not Available [facility] 03/24/2023 02:50:54 Past Encounters Encounter ID Performer Location Encounter Start Date Encounter Closed Date Diagnosis/Indication Diagnosis SNOMED-CT Code Diagnosis ICD10 Code Diagnosis IMO Codes Diagnosis Note [id number] TRENT PADILLA [facility] ([facility]) [address] [place] [address] 12/28/2022 13:52:48 01/08/2023 12:28:02 Abdominal pain 31614829 R10.9 It's time for labs now anyway, so will get some today. She reports the pain is worse after eating. She had some spinach salad and she thinks this made it worse. Trouble seems to come and go. Last colonoscop y was 7 years ago. [id number] TRENT PADILLA [facility] ([facility]) [address] [place] [address] 01/02/2023 09:04:02 01/02/2023 14:45:40 Abdominal pain 11272204 R10.9 [id number] TRENT PADILLA [facility] ([facility]) [address] [place] [id number] 03/06/2023 09:05:39 03/06/2023 09:58:11 Paresthesia of upper limb 82600682 R20.2 [id number] TRENT PADILLA [facility] ([facility]) [address] [place] [address] 06/15/2023 08:56:18 06/15/2023 10:11:43 Mass of skin 096210322 R22.9 Thoracic back pain 03823 8004 M54.6 History of scoliosis. [id number] TRENT PADILLA [facility] ([facility]) [address] [place] [address] 06/26/2023 09:42:42 06/26/2023 16:58:51 [id number] TRENT PADILLA [facility] ([facility]) [address] [place] [address] 08/07/2023 15:31:34 08/07/2023 16:38:31 Neck pain 84748901 M54.2 Recent MRI at [facility]. She will make a follow-up with them. [place] pals y of left side of face 2080484086 7659644 G51.0 Resolved. Continues taking Lysine. [id number] SIRIA PINO [facility] ([facility]) [address] [place] [address] 11/27/2023 15:56:36 11/27/2023 16:32:18 Low back pain 555842083 M54.50 Will send x-ray for over read. [...] for re-evaluat ed. Patient verbalizes understand ing. [id number] TRENT PADILLA [facility] ([facility]) [address] [place] [address] 02/14/2024 12:17:19 02/14/2024 13:55:12 Adult health examination 306346785 Z00.00 Pain of le ft shoulder joint 6641834861 6707209 M25.512 Palpitations 48486303 R0 0.[address] Hawkins. Hyperlipidemia 89655380 E78.5 Diet and exercise. [id number] TRENT NEWBY [facility] ([facility]) [address] [place], [place] [address] 06/06/2024 12:17:33 06/06/2024 13:31:50 [id number] YANETH IRIZARRY [facility] ([facility]) [address] [place] [address] 06/10/2024 13:16:06 06/10/2024 14:53:35 Headache 39886211 R51.9 Numbness a nd tingling sensation of skin 1876106741 02 R20.2 left face, left arm, left thigh [id number] YANETH IRIZARRY [facility] ([facility]) [address] [place] [address] 08/05/2024 09:21:57 08/05/2024 10:24:33 Neuralgia 48891926 M79.2 Follows with neurology. Palpitations 83958876 R0 [address] Hawkins. Continue metoprolol . [id number] Checo Gonzalez DO [facility] ([facility]) [address] [place] [address] 09/22/2024 10:55:00 09/22/2024 12:03:07 Dysuria 65650188 R30.0 Acute urin sean tract infection 048476049 N39.0 I reviewed UA results and discussed with pt. We will start antibiotic s. Pt will increase oral fluids and can use cranberry. Return to office with no improvemen t or any problems. Go to ER with severe worsening or severe problems.W e will obtain urine culture [id number] YANETH IRIZARRY [employer]NAGER [employer] [facility] ([facility]) [address] [place] [address] 02/03/2025 15:11:03 02/03/2025 16:14:19 Neuralgia 46695629 M79.2 Follows with neurology. She is taking Cayenne Pepper shots now. Mammogram declined 30999 5004 Z53.20 [id number] Discussed with patient the benefits of early detection, the role of screening mammograms , and the risks associated with delaying or refusing screening. She does not wish to schedule an appointmen t for screening at this time. Palpitations 28629639 R0 0.[address] Hawkins. Continue metoprolol . Recently had a stress test. [id number] YANETH IRIZARRY [facility] ([facility]) [address] [place] [address] 03/19/2025 13:55:09 03/19/2025 14:57:56 Backache 211114764 M54.9 411632 Pain has improved since stopping the cayenne pepper supplement . Palpitations 44225588 R0 [address] Hawkins. Continue metoprolol . Recently had a stress test. [id number] JOHANNY MONTES [facility] ([facility]) [address] [place] [address] 04/02/2025 16:25:21 04/03/2025 15:46:05 Acute low back pain 881939058 M54.50 75512780 Urine dip normal. Will send cx out since she's had diarrhea the last 4 days. VSS. Will trial a muscle relaxer. Possibly due from dehydratio n so push oral fluids including electrolyt e replacemen t. Dysuria 04624293 R30.0 99083 Health Concerns Section Related Observation LastModified by Organization Detai ls LastModified Time None Recorded Concern Status LastModified by Organization Details LastModified Time None Recorded Advance Directives Directive None Recorded Payers Insurance Date Sequence Insurance Name Policy Number Policy Conrad Covered Member ID Conrad Member ID Guarantor Name 04/02/2025 1 [employer] (MEDICAID REPLACEMENT - HMO) [id number] Dalia Nguyen [id number] Dalia Nguyen Notes Date Note Type Note Provider Name and Address Organization Details Recorded Time 08/05/2024 text/html HeadacheReported by PatientHPIFor quality, patient reportsthrobbing. For severity, patient reportsworse. For associated symptoms, patient reportstingling,dizzin ess, andsleep disturbancesbut reportsno confusion,no slurred speech, andno double vision. For location, patient reportsunilateral,bila teral,occipital,fronta l, andtemporal. For duration, patient reportsconstant. For onset/timing, patient reportsworse/persisten t since: (past 2 weeks). For context, patient reportsnot related to trauma.ROS as noted in the HPI YANETH EDIE, [facility] [address] [place] [address], , [facility] 08/05/2024 10:22:30 09/22/2024 text/html ROS as noted in the HPI walk in ptPt has lower abdominal pain, frequency and urgency 3 days, with some right kidney ward.mild fever yesterday. no chills. no n/v/d. Checo Gonzalez, DO [address], [place], , [facility] 09/22/2024 12:02:01 02/03/2025 text/html Annual WellnessReported by PatientSocial/Behavior al HistoryFor diet and nutrition, patient reportshealthy dietanddiscussed vitamin and supplement use. For physical activity, patient reportsexercises on a regular basis. For additional lifestyle factors, patient reportsno tobacco useandno alcohol intake. YANETHTRENT MARRUFO [address], [place], , [facility] 02/03/2025 16:13:33 03/19/2025 text/html Back PainReporte d by PatientHPIFor location, patient reportsthoracic left. For quality, patient reportsgnawing. For severity, patient reportsimproving. YANETHTRENT MARRUFO [address], [place], , [facility] 03/19/2025 14:46:55 04/02/2025 text/html ROS as noted in the HPI walk-in; PCP Yaneth Edie Patient c/o diarrhea and lower back pain that started four days ago. She states the diarrhea is getting better; none since yesterday but back pain is still present. She denies any dysuria. Family has been passing around a stomach bug. JOHANNY MONTES, [address], [address], [facility], Sarah 07/22/2025 18:13:27 OBGyn Episode No OBEpisode recorded.
--- OUTSIDE RECORDS SUMMARY | 2025-08-18 17:21 | XMS_ITS | Clinical Summary ---
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 Gender Identity Not on file Sexual Orientation Not on file Plan of Treatment Health Maintenance Due Date Last Done Comments DTAP/TDAP/TD VACCINES (1 - Tdap) 1984 HPV/Cotest (21-29) 1986 CERVICAL CANCER SCREENING 1995 HPV/Cotest (30-65) 1995 PAP SMEAR 1995 BREAST CANCER SCREENING 2005 COLORECTAL SCREENING 2010 Colorectal Cancer Screening 2010 FIT-DNA Q 3 years 2010 FIT/FOBT Q 1 year 2010 Flex Sig/CT Colonography Q 5 years 2010 ZOSTER VACCINE (1 of 2) 2015 INFLUENZA VACCINE (#1) 2025 RSV VACCINE (60+ or ) (1 - 1-dose 75+ series) 2040 HEPATITIS B VACCINES Aged Out No long er eligible based on patient's age to complete this topic Insurance [facility] MEDICAID
[2025-08-18 17:39] LABS: Hematocrit 42.5 % (36-47); Hemoglobin 13.80 g/dL (11.27-16.99); Mean Corpuscular HGB Conc 32.5 g/dL (30-55); Mean Corpuscular Hemoglobin 28.7 pg (27-33); Mean Corpuscular Volume 88.4 fl (85-98); Nucleated Red Blood Cells % 0 %; Platelet Count 215 10^3/cmm (157-399); Red Blood Count 4.81 10^6/uL (3.85-5.65); White Blood Count 5.95 10^3/uL (3.29-11.43)
--- NOTE | 2025-08-18 17:47 | ECG_ITS ---
[facility] Test Date: 2025-08-18 Pat Name: Dalia Nguyen Department: Room: Gender: Female Dictaphone Operator: : 1965 Requested By: Manolo Moffett Order Number: [id number] Gennaro MD: TANIA KINGSLEY Measurements Intervals [place] Rate: 58 P: 66 IN: 181 QRS: 93 QRSD: 93 T: 73 QT: 412 QTc: 406 Interpretive Statements SINUS BRADYCARDIA BORDERLINE RIGHT AXIS DEVIATION [QRS AXIS > 90] MODERATE ST DEPRESSION [0.05+ mV ST DEPRESSION] Compared to ECG 03/10/2025 10:07:41 ST (T wave) deviation now present Sinus arrhythmia no longer present Incomplete right bundle-branch block no longer present Electronically Signed On 08-19-2025 20:18:24 PERSONAL CARE HOME ADMINISTRATOR by TANIA KINGSLEY [email or web address]
[2025-08-18 17:53] LABS: INR 0.87 (0.8-1.2); Partial Thromboplastin Time 36.4 SECONDS (23.9-36.7); Prothrombin Time 12.50 SECONDS (12.1-14.9)
[2025-08-18 17:57] LABS: Alanine Aminotransferase 21 U/L (0-33); Albumin Level 4.7 g/dL (3.5-5.2); Alkaline Phosphatase 130 U/L (35-105); Anion Gap 14.0 (5-19); Aspartate Amino Transferase 26 U/L (0-32); Blood Urea Nitrogen 20 mg/dL (8-23); Calcium 9.7 mg/dL (8.5-10.5); Carbon Dioxide 26 mmol/L (22-29); Chloride 103 mmol/L (98-107); Globulin 2.5 g/dL (1.3-4.6); Glucose 100 mg/dL (65-115); Osmolality Calculated 291 mOsm/kg (285-295); Potassium 4.0 mmol/L (3.5-5.1); Sodium 139 mmol/L (136-145); Total Protein 7.2 g/dL (6.6-8.7)
--- NOTE | 2025-08-18 18:18 | ED_ITS ---
HPI - Neuro Symptoms/Deficit 2 General: Chief Complaint: Headache Stated Complaint: L sided numbness, heavy eyes, LARSON started at noon Time Seen by Provider: 08/18/25 17:27 History of Present Illness: 60-year-old female presents to the [facility] ency room complaining with left-sided numbness and what she describes as heavy feeling eyes symptoms began at noon today approximately 5 hours prior to presentation. He denies any difficulty with speech or vision. She has had similar symptoms in the past with headache. She denies chest pain or shortness of breath. No difficulty with balance or gait. Associated symptoms: Deny chest pain Related Data Home Medications ?Medication ?Instructions ?Recorded ?Confirmed Quercetin 1 tab PO DAILY 12/04/2112/19 ascorbic acid (vitamin C) 500 mg 500 mg PO DAILY 12/0409/30/24 tablet (Vitamin C) cholecalciferol (vitamin D3) 25 25 mcg PO DAILY 09/30/24 mcg (1,000 unit) tablet (Vitamin D3) bromelains (bulk) (Bromelain 1 ea miscellaneous DAILY 06/30/23 09/30/24 powder) licorice root (G.glabra) 450 mg 450 mg PO DAILY 09/30/24 capsule zinc acetate 50 mg (zinc) capsule 50 mg PO DAILY 06/3009/30/24 Previous Rx's ?Medication ?Instructions ?Recorded aspirin 81 mg tablet,delayed 81 mg PO DAILY #90 tabs 1 10/23/20 release (Adult Low Dose Aspirin) magnesium L-lactate 84 mg 84 mg PO DAILY #90 tabs 07/28 03/16 tablet,extended release metoprolol succinate 25 mg 25 mg PO QPM #90 tabs 04/06 tablet,extended release 24 hr Allergies Allergy/AdvReac Type Severity Reaction Status Date / Time terbinafine (From Lamisil) Allergy Unknown unknown Verified 09/30/24 09:40 Review of Systems 2 Const: Denies: fever(s) or chills Card: Denies: chest pain Resp: Denies: dyspnea GI: Denies: abdominal pain : Denies: dysuria, urinary frequency or urinary urgency Musc: Denies: neck pain or back pain Skin/Breast: Denies: rash PFSH ED 2 PFSH: Medical History Uterine fibroid Identified and removed at time of hysteroscopy in 07/2020 Spider varicose vein Atypical chest pain Dyslipidemia Ventricular arrhythmia Surgical History History of hysteroscopy (08/24/20) With D&C and polypectomy. Performed by Dr. Baca at [facility] in [place], [place] History of dental surgery (~2019) Family History Mother Stroke Hypertension Grandfather Diabetes Maternal Father No problems noted. Denies family history of CAD (coronary artery disease) Clotting disorder Chronic kidney disease (CKD) Suicide Anesthesia complication Bleeding disorder Lung disease Cancer Social History Smoking and tobacco/nicotine status: former use of tobacco/nicotine Quit status (tobacco/nicotine): has quit using Year quit tobacco: ~1996 Former quit date comment: Most smoked 1 PPD. Started age 17. Smoked for 15 years. Alcohol intake: current Alcohol intake frequency: holidays/special occasions only Substance/Drug Use: never NIH stroke score 2 NIHSS: Level Of Consciousness - 1a: 0 Level Of Consciousness Questions - 1b: Both Correct Level Of Consciousness Commands - 1c: Both Correct Best Gaze - 2: Normal Visual Carr - 3: No Visual Loss Facial Palsy - 4: N ormal Motor Arm Right - 5: No Drift Motor Arm Left - 5: No Drift Motor Leg Right - 6: No Drift Motor Leg Left - 6: No Drift Limb Ataxia - 7: A bsent Sensory - 8: Mild To Moderate Loss Best Language - 9: No Aphasia Dysarthia - 10: Normal Extinction And Inattention - 11: 0 Score: Total Score: 1 Physical Exam 2 Const: COMMON NORMALS: no acute distress GENERAL APPEARANCE: cooperative and comfortable ORIENTATION/CONSCIOUSNESS: Yes awake, Yes oriented to person, Yes oriented to place and Yes oriented to time HENMT: COMMON NORMALS: normocephalic, atraumatic and hearing grossly normal bilaterally HEAD & SCALP: normocephalic and atraumatic Resp: COMMON NORMALS: normal respiratory effort, No retractions, No use of accessory muscles and clear to auscultation bilaterally AUSCULTATION: clear to auscultation bilaterally Cardio: COMMON NORMALS: regular rate, regular rhythm and No murmurs present (Cardio) RATE: regular rate RHYTHM: regular rhythm GI: COMMON NORMALS: Soft to palpation and No hepatosplenomegaly present A USCULTATION: Yes normoactive bowel sounds PALPATION: Yes Soft to palpation, No Tenderness to palpation present (GI), No Guarding due to palpation present (GI) and Yes No hepatosplenomegaly present Extremity: COMMON NORMALS: normal to inspection, capillary refill normal, no clubbing, cyanosis or edema, no calf tenderness and no pedal edema Neuro: SENSORIUM/ORIENTATION: Yes oriented to person, Yes oriented to place and Yes oriented to time Skin: COMMON NORMALS: no rashes or lesions noted GENERAL SKIN EXAM: no rashes or lesions noted Course 2 Vital Signs: Vital signs: Vital Signs Temperature 97.7 F 08/18/25 17:20 Pulse Rate 62 08/18/25 20:30 Respiratory Rate 16 08/18/25 20:30 Blood Pressure 98/70 08/18/25 20:30 Pulse Oximetry 99 08/18/25 20:30 Oxygen Delivery Me thod Room Air 08/18/25 17:20 MDM - Neuro Symptoms/Deficit Medical Decision Making NIH done 1 patient initially seen in the department. NIH at most of 1 with reported numbness on her left side but that is even difficult to elicit with scratch testing. She has no ataxia and no other significant findings. CT of head is negative. Symptoms improved with treatment of headache. Patient has had similar problems in the past. Based on her presentation symptoms will be this is a migraine with aura. She has according to her history previously of a right MCA stroke this could be some current recrudescence of her previous Symptoms as well. She is currently on aspirin. She had seen Dr. Holguin previously for the question of a stroke she had an MRI that had some questionable areas that were nonspecific. He had continued her aspirin. Will continue aspirin for now with no changes however follow-up with primary care return if she has further symptoms. Medical Records I reviewed the patient's medical records. Lab Data I reviewed the patient's lab results. 08/18/25 17:35 08/18/25 17:[address] 08/18/25 17:20 IMPRESSION: No acute intracranial abnormality. ASSESSMENT: ASPECTS ([facility] Stroke Program Early CT Score) is 10. ADDENDUM: 08/18/25 9538 THIS REPORT CONTAINS FINDINGS THAT MAY BE CRITICAL TO PATIENT CARE. As of 5:49 PM MANAGER BRANCH on 08/18/2025, MANOLO Ackerman has received the exam report, is aware of the critical finding(s), and indicated no conference call is necessary to discuss the exam findings. Laboratory Results WBC 5.95 10^3/uL (3.29-11.43) 08/18/25 17:35 RBC 4.81 10^6/uL (3.85-5.65) 08/18/25 17:35 Hgb 13.80 g/dL (11.27-16.99) 08/18/25 17:35 Hct 42.5 % (36-47) 08/18/25 17:35 MCV 88.4 fl (85-98) 08/18/25 17:35 MCH 28.7 pg (27-33) 08/18/25 17:35 MCHC 32.5 g/dL (30-55) 08/18/25 17:35 RDW 11.1 % (12.1-15.1) L 08/18/25 17:35 Plt Count 215 10^3/cmm (157-399) 08/18/25 17:35 MPV 9.5 fL (7.4-10.4) 08/18/25 17:35 Neut % (Auto) 52.2 % 08/18/25 17:35 Lymph % (Auto) 38.8 % 08/18/25 17:35 [place] % (Auto) 5.9 % 08/18/25 17:35 Eos % (Auto) 2.4 % 08/18/25 17:35 Baso % (Auto) 0.5 % 08/18/25 17:35 Neut # (Auto) 3.11 10^3/uL (1.8-7.7) 08/18/25 17:35 Lymph # (Auto) 2.3 10^3/uL (0.8-4.8) 08/18/25 17:35 [place] # (Auto) 0.4 10^3/uL (0.2-0.9) 08/18/25 17:35 Eos # (Auto) 0.1 10^3/uL (0.0-0.8) 08/18/25 17:35 Baso # (Auto) 0.0 10^3/uL (0.0-0.1) 08/18/25 17:35 Nucleated RBC % (auto) 0 % 08/18/25 17:35 Nucleated RBCs # 0.0 /100WBC 08/18/25 17:35 PT 12.50 SECONDS (12.1-14.9) 08/18/25 17:35 INR 0.87 (0.8-1.2) 08/18/25 17:35 APTT 36.4 SECONDS (23.9-36.7) 08/18/25 17:35 Sodium 139 mmol/L (136-145) 08/18/25 17:35 Potassium 4.0 mmol/L (3.5-5.1) 08/18/25 17:35 Chloride 103 mmol/L (98-107) 08/18/25 17:35 Carbon Dioxide 26 mmol/L (22-29) 08/18/25 17:35 Anion Gap 14.0 (5-19) 08/18/25 17:35 BUN 20 mg/dL (8-23) 08/18/25 17:35 Creatinine 0.7 mg/dL (0.5-0.9) 08/18/25 17:35 GFR Calculation 85.4 mL/min (90-130) L 08/18/25 17:35 Glucose 100 mg/dL (65-115) 08/18/25 17:35 POC Glucose 98 mg/dL (70-110) 08/18/25 17:33 Calculated Osmolality 291 mOsm/kg (285-295) 08/18/25 17:35 Calcium 9.7 mg/dL (8.5-10.5) 08/18/25 17:35 Total Bilirubin 0.3 mg/dL (0.15-1.2) 08/18/25 17:35 AST 26 U/L (0-32) 08/18/25 17:35 ALT 21 U/L (0-33) 08/18/25 17:35 Alkaline Phosphatase 130 U/L (35-105) H 08/18/25 17:35 Total Protein 7.2 g/dL (6.6-8.7) 08/18/25 17:35 Albumin 4.7 g/dL (3.5-5.2) 08/18/25 17:35 Globulin 2.5 g/dL (1.3-4.6) 08/18/25 17:35 Urine Color Yellow (Yellow) 08/18/25 18:09 Urine Appearance Clear (CLEAR) 08/18/25 18:09 Urine pH 6.0 (5-7) 08/18/25 18:09 Ur Specific [place] 1.005 (1.005-1.030) 08/18/25 18:09 Urine Protein Negative (Negative) 08/18/25 18:09 Urine Glucose (UA) Negative (Normal) 08/18/25 18:09 Urine Ketones Negative (Negative) 08/18/25 18:09 Urine Blood Trace (Negative) A 08/18/25 18:09 Urine Nitrate Negative (Negative) 08/18/25 18:09 Urine Bilirubin Negative (Negative) 08/18/25 18:09 Urine Urobilinogen 0.2 mg/dL (Negative) 08/18/25 18:09 Ur Leukocyte Esterase Negative (Negative) 08/18/25 18:09 Urine RBC 0-2 /hpf (0-2) 08/18/25 18:09 Urine WBC 0-5 /hpf (0-5) 08/18/25 18:09 Ur Squamous Epith Cells 0-5 /hpf (0-5) 08/18/25 18:09 Amorphous Sediment Not Reportable 08/18/25 18:09 Urine Bacteria None seen /hpf (NONE) 08/18/25 18:09 Hyaline Casts 0-4 /lpf H 08/18/25 18:09 Urine Opiates Screen Negative ng/mL (Negative) 08/18/25 18:09 Ur Barbiturates Screen Negative ng/mL (Negative) 08/18/25 18:09 Ur Phencyclidine Scrn Negative ng/mL (Negative) 08/18/25 18:09 Ur Amphetamines Screen Negative ng/mL (Negative) 08/18/25 18:09 U Benzodiazepines Scrn Negative ng/mL (Negative) 08/18/25 18:09 Urine Cocaine Screen Negative ng/mL (Negative) 08/18/25 18:09 U Marijuana (THC) Screen Negative ng/mL (Negative) 08/18/25 18:09 All radiology interpretation(s) finalized by discharge Discharge Plan Discharge Patient Disposition: Home Clinical Impression: Migraine without aura Condition: Stable Prescriptions: No Action metoprolol succinate 25 mg tablet extended release 24 hr 25 mg PO QPM Qty: 90 3RF aspirin [Adult Low Dose Aspirin] 81 mg tablet,delayed release (DR/EC) 81 mg PO DAILY Qty: 90 3RF magnesium L-lactate 84 mg tablet extended release 84 mg PO DAILY Qty: 90 3RF zinc acetate 50 mg (zinc) Capsule 50 mg PO DAILY Licorice Root 450 mg Capsule 450 mg PO DAILY Bromelain Powder 1 ea MISCELLANEOUS DAILY ascorbic acid (vitamin C) [Vitamin C] 500 mg Tablet 500 mg PO DAILY cholecalciferol (vitamin D3) [Vitamin D3] 25 mcg (1,000 unit) Tablet 25 mcg PO DAILY Quercetin 1 tab PO DAILY Discharge Orders: Discharge ED (Routine); Ordered 08/18/25 Ordered By: Manolo Perez Referrals: Yaneth Acuña FNP [Primary Care Provider, Unknown] Discharge Diet: Usual diet Discharge Activity: Resume usual activity Patient Instructions: Opioid Safety, Pain Management, Patient Portal & Maria Ines Instructions Activity Restrictions/Additional Instructions: Thank you for choosing [facility] for your healthcare needs today. It is very important that you follow up as instructed or that you return to the Emergency Department should you have concerns or if your condition changes or worsens in any way. Emergency department visits are focused on emergent conditions, in some cases you may require further evaluation on an outpatient basis. You are seen in the emergency room with complaints of headache along with left- sided numbness. Your evaluated for stroke no finding of a stroke was noted. We do recommend you continue aspirin daily CT of your head was negative the remainder of your laboratory tests did not show any clinically significant abnormalities. At this point you can be discharged home. Do recommend you follow-up with neurology regarding your headaches. You had also mentioned having previously seen a neurologist and there was a concern for possible aneurysm recommend you follow-up with them to have further testing done as they had recommended. (Please note that included in your discharge packet is information concerning opioid safety and pain management. This information is given to all patients were discharged from the ER regardless of their discharge diagnosis or the medicines they usually take or are prescribed.) Print Language: Citizen Of [place] Coding Level of Care Code ED Garment Folder for Susan Durant
[2025-08-18 18:23] LABS: Glucose Urine UA Negative (Normal); Nitrate Urine Negative (Negative); Specific Gravity, Urine 1.005 (1.005-1.030)
[2025-08-18 18:28] LABS: Add Urine Microscopic? YES
[2025-08-18 18:30] LABS: PCP Screen Urine Negative (Negative)
[2025-08-18 20:23] VITALS: BP 113/74; PULSE 56; RESP 15; O2SAT 98
[2025-08-18 20:30] VITALS: BP 98/70; PULSE 62; RESP 16; O2SAT 99
== END 2025-08-18 21:05 | disposition home or self-care (01) ==
PROVIDERS: Emergency Provider Family Medicine; PCP Nurse Practitioner Family
DX: G43.909 Migraine, unspecified, not intractable, without status migrainosus (principal); Z79.82 Long term (current) use of aspirin; Z87.891 Personal history of nicotine dependence; E78.5 Hyperlipidemia, unspecified
CPT/HCPCS: 36415; 36416; 70450; 80053; 80306; 81001; 82962; 85025; 85610; 85730; 93005; 96374; 99285; J1200; J1885